=== PATIENT | female | born 1960 | race Caucasian/White ===

== ENCOUNTER 2019-10-10 11:12 | Inpatient (IN) | payer MEDICARE, OTHER ==
[2019-10-11] MEDS ORDERED: Cetirizine 10 MG Tab PO PRN (13:43)
[2019-10-11] MEDS ORDERED: Acetaminophen/HYDROcodone 325-5 MG Tab PO PRN (13:43)
[2019-10-11] MEDS ORDERED: Non-Formulary Medication 1 Each (Naproxen Sodium [Aleve] 220 MG) PO PRN (13:43)
[2019-10-11] MEDS ORDERED: Enoxaparin 40 MG/0.4 ML Syringe SUBCUT SCH (13:45)
[2019-10-11] MEDS ORDERED: Hypromellose 0.3% Ophth Soln 15 ML Bottle EYEBOTH PRN (14:09)
[2019-10-11] MEDS: Acetaminophen 500 MG Tab PO SCH ×2 (15:22→20:40)
[2019-10-11] MEDS: Dorzolamide 2% Ophth Soln 10 ML Bottle EYEBOTH SCH (18:21)
[2019-10-11] MEDS: Brimonidine 0.2% Ophth Soln 5 ML Bottle EYEBOTH SCH (18:22)
[2019-10-11] MEDS: DALFAMPRIDINE 10 MG PO SCH (20:40)
[2019-10-11] MEDS: Apixaban 5 MG Tab PO SCH (20:41)
[2019-10-11] MEDS: atorvaSTATin 20 MG Tab PO SCH (20:42)
[2019-10-11] MEDS: Latanoprost 0.005% Ophth Soln 2.5 ML Bottle EYEBOTH SCH (20:43)
[2019-10-12] MEDS ORDERED: Ondansetron 4 MG/2 ML SDV ONE (08:27)
[2019-10-12] MEDS: Sodium Chloride 0.9% 10 ML Syringe FLUSH PRN (08:30)
--- NOTE | 2019-10-12 08:44 | PCM.HP.2 ---
H&P History of Present Illness - General Date of Service: 10/12/19 Admit Problem/Dx: Admission Diagnosis/Problem Admission Diagnosis/Problem Weakness Source of Information: Patient History Limitations: Reports: No Limitations - History of Present Illness Initial Comments - Free Text/Narative: Kaykay is a 59-year-old female admitted yesterday to swing bed for rehabilitation. She had ORIF of the right tibia from a fall on 06 October at [facility]. She has MS,tobacco abuse uncontrolled, urinary incontinence stable, and a history of paroxysmal supra ventricular tachycardia. This morning she complains of palpitations and mild shortness of breath but denies any chest pain fever or chills. Right Leg Pain Score (Numeric/FACES): 0 - Related Data Allergies/Adverse Reactions: Allergies Allergy/AdvReac Type Severity Reaction Status Date / Time No Known Allergies Allergy Verified 10/11/19 12:08 Home Medications: Home Meds Acetaminophen [Tylenol Extra Strength] 1,000 mg PO TID 10/11/19 [History] Acetaminophen/HYDROcodone [Ipava 325-5 MG] 1 - 2 tab PO Q6H PRN 10/11/19 [ History] Apixaban [Eliquis] 2.5 mg PO BID 10/11/19 [History] Aspirin [[place] Aspirin] 81 mg PO DAILY 10/11/19 [History] Bimatoprost [LUMIGAN 0.01% Ophth Soln] 1 drop EYEBOTH BEDTIME 10/11/19 [History] Brinzolamide/Brimonidine Tart [Simbrinza 1%-0.2% Eye Drops] 1 drop EYEBOTH BID 10/11/19 [History] Calcium Carbonate/Vitamin D3 [Calcium 600 + Vit D 200] 1 tab PO DAILY 10/11/19 [ History] Cetirizine [ZyrTEC] 10 mg PO DAILY PRN 10/11/19 [History] Cholecalciferol (Vitamin D3) [Vitamin D3] 25 mcg PO DAILY 10/11/19 [History] Citalopram [Citalopram HBr] 10 mg PO DAILY 10/11/19 [History] Dalfampridine [Dalfampridine ER] 10 mg PO BID 10/11/19 [History] Hypromellose [Genteal Mild] 1 drop EYEBOTH ASDIRECTED PRN 10/11/19 [History] Lutein 20 mg PO DAILY 10/11/19 [History] Multivit,Calc,Mins/Iron/Folic [Therapeutic-M Tablet] 1 tab PO DAILY 10/11/19 [ History] Naproxen Sodium [Aleve] 220 mg PO BID PRN 10/11/19 [History] Teriflunomide [Aubagio] 14 mg PO DAILY 10/11/19 [History] atorvaSTATin [Lipitor] 20 mg PO BEDTIME 10/11/19 [History] Past Medical History HEENT History: Reports: Cataract, Impaired Vision Other HEENT History: Bilateral cataracts Cardiovascular History: Reports: Other (See Below) Other Cardiovascular History: SVT Respiratory History: Reports: SOB, Other (See Below) Other Respiratory History: Bronchitis Genitourinary History: Reports: Other (See Below) Other Genitourinary History: Stress incontinence LOGISTICS LEAD History: Reports: Musculoskeletal History: Reports: Other (See Below) Other Musculoskeletal History: Broken right ankle. MS Psychiatric History: Reports: Depression, Mood Swings Immunologic History: Reports: Other (See Below) Other Immunologic History: MS Oncologic (Cancer) History: Reports: Cervix - Infectious Disease History Infectious Disease History: Reports: Chicken Pox - Past Surgical History HEENT Surgical History: Reports: Cataract Surgery, Oral Surgery GI Surgical History: Reports: Appendectomy, Cholecystectomy Female Surgical History: Reports: Breast Biopsy, Section, Cervical Conization, Hysterectomy, Salpingo-Oophorectomy Musculoskeletal Surgical History: Reports: ORIF Other Musculoskeletal Surgeries/Procedures:: Right tib/fib repair 10/06 Social & Family History - Family History Family Medical History: Noncontributory - Tobacco Use Smoking Status *Q: Current Every Day Smoker Years of Tobacco use: 40 Packs/Tins Daily: 0.5 Used Tobacco, but Quit: No - Caffeine Use Caffeine Use: Reports: Soda Other Caffeine Use: Coke 2 cans/day - Recreational Drug Use Recreational Drug Use: No H&P Review of Systems - Review of Systems: Review Of Systems: Comprehensive ROS is negative, except as noted in HPI. Exam - Exam Exam: See Below - Vital Signs Vital Signs: Last Vital Signs Temp 98.1 F 10/11/19 12:07 Pulse 91 10/11/19 12:07 Resp 18 10/11/19 12:07 BP 105/75 10/11/19 12:07 Pulse Ox 94 L 10/11/19 12:07 Weight: 57.606 kg - Exam General: Alert HEENT: PERRLA, Hearing Intact, Mucosa Moist & [place], Nares Patent, Normal Nasal Septum, Posterior Pharynx Clear, Conjunctiva Clear, EOMI, EACs Clear, TMs Clear Neck: Supple, Trachea Midline, 2 Lungs: Clear to Auscultation, Normal Respiratory Effort Cardiovascular: Regular Rhythm, Tachycardia GI/Abdominal Exam: Normal Bowel Sounds, Soft, Non-Tender, No Organomegaly, No Distention, No Abnormal Bruit, No Mass, Pelvis Stable (Female) Exam: Normal External Exam, Normal Speculum Exam, Normal Bimanual Exam Rectal (Female) Exam: Deferred Back Exam: Normal Inspection, Full Range of Motion, NT Extremities: Normal Inspection, Normal Range of Motion, Non-Tender, No Pedal Edema, Normal Capillary Refill Skin: Warm, Dry, Intact Neurological: Cranial Nerves Intact, Reflexes Equal Bilateral Neuro Extensive - Mental Status: Alert, Oriented x3, Normal Mood/Affect, Normal Cognition Neuro Extensive - Motor, Sensory, Reflexes: CN II-XII Intact, Normal Gait, Normal Reflexes Psychiatric: Alert, Normal Affect, Normal Mood EKG INTERPRETATION EKG Date: 10/12/19 Rhythm: Other (SVT) Sepsis Event Note - Evaluation Sepsis Screening Result: No Definite Risk - Problem List (1) Fracture tibia/fibula SNOMED Code(s): 205424859 ICD Code: S82.209A - UNSP FRACTURE OF SHAFT OF UNSP TIBIA, INIT FOR CLOS FX; S82.409A - UNSP FRACTURE OF SHAFT OF UNSP FIBULA, INIT FOR CLOS FX Status: Acute Current Visit: Yes Qualifiers: Encounter type: subsequent encounter (2) Multiple sclerosis SNOMED Code(s): 60722243 ICD Code: G35 - MULTIPLE SCLEROSIS Status: Chronic Current Visit: Yes (3) PSVT (paroxysmal supraventricular tachycardia) SNOMED Code(s): 67772446 ICD Code: I47.1 - SUPRAVENTRICULAR TACHYCARDIA Status: Acute Current Visit: Yes (4) Tobacco abuse SNOMED Code(s): 620870644 ICD Code: Z72.0 - TOBACCO USE Status: Acute Current Visit: Yes (5) MDD (major depressive disorder) SNOMED Code(s): 384339619 ICD Code: F32.9 - MAJOR DEPRESSIVE DISORDER, SINGLE EPISODE, UNSPECIFIED Status: Acute Current Visit: Yes Qualifiers: Major depression recurrence: recurrent (6) Osteoporosis SNOMED Code(s): 44716516 ICD Code: M81.0 - AGE-RELATED OSTEOPOROSIS W/O CURRENT PATHOLOGICAL FRACTURE Status: Acute Current Visit: Yes Qualifiers: Osteoporosis type: age-related (7) Glaucoma SNOMED Code(s): 78839798 ICD Code: H40.9 - UNSPECIFIED GLAUCOMA Status: Acute Current Visit: Yes (8) HLD (hyperlipidemia) SNOMED Code(s): 80190492 ICD Code: E78.5 - HYPERLIPIDEMIA, UNSPECIFIED Status: Acute Current Visit : Yes Qualifiers: Hyperlipidemia type: unspecified Qualified Code(s): E78.5 - Hyperlipidemia , unspecified Problem List Initiated/Reviewed/Updated: Yes Orders Last 24hrs: Active Orders 24 hr Category Date Time Status Patient Status [ADT] Routine ADT 10/11/19 12:39 Active Activity as Tolerated [RC] .Routine Care 10/11/19 11:09 Active Communication Order [RC] DAILY Care 10/11/19 11:11 Active Vital Signs [RC] Q4H Care 10/12/19 08:37 Active OT Evaluation and Treatment [CONS] Routine Cons 10/11/19 11:08 Active PT Evaluation and Treatment [CONS] Routine Cons 10/11/19 11:08 Active Regular Diet [DIET] Diet 10/11/19 Dinner Active BASIC METABOLIC PANEL,BMP [CHEM] Stat Lab 10/12/19 08:36 Ordered CBC WITH AUTO DIFF [HEME] Stat Lab 10/12/19 08:36 Ordered TROPONIN I [CHEM] Stat Lab 10/12/19 08:36 Ordered Acetaminophen [Tylenol Extra Strength] Med 10/11/19 15:00 Active 1,000 mg PO TID Acetaminophen/HYDROcodone [Ipava 325-5 MG] Med 10/11/19 13:43 Active 1 tab PO Q6H PRN Apixaban [Eliquis] Med 10/11/19 21:00 Active 2.5 mg PO BID Aspirin Med 10/12/19 09:00 Active 81 mg PO DAILY Brimonidine [Alphagan 0.2% Ophth Soln] Med 10/11/19 18:00 Active 0 ml EYEBOTH BID@0900,1800 Calcium Carbonate [Oyster Shell Calcium] Med 10/12/19 09:00 Active 500 mg PO DAILY Cetirizine [ZyrTEC] Med 10/11/19 13:43 Active 10 mg PO DAILY PRN Cholecalciferol (Vitamin D3) [Vitamin D3] Med 10/12/19 09:00 Active 25 mcg PO DAILY Citalopram [Celexa] Med 10/12/19 09:00 Active 10 mg PO DAILY Dalfampridine [Dalfampridine ER] Med 10/11/19 21:00 Active 10 mg PO BID Diltiazem [Cardizem CD] Med 10/12/19 09:00 Ordered 120 mg PO DAILY Dorzolamide [Trusopt 2% Ophth Soln] Med 10/11/19 18:00 Active 0 ml EYEBOTH BID@0900,1800 Hypromellose [GenTeal Mild to Moderate Ophth Soln] Med 10/11/19 14:09 Active 0 ml EYEBOTH ASDIRECTED PRN Latanoprost [Xalatan 0.005% Ophth Soln] Med 10/11/19 21:00 Active 0 ml EYEBOTH BEDTIME Lutein Med 10/12/19 09:00 Active 20 mg PO DAILY Multivitamins w-Iron/Ca/FA/Min [Thera M Plus] Med 10/12/19 09:00 Active 1 tab PO DAILY Teriflunomide [Aubagio] Med 10/12/19 09:00 Active 14 mg PO DAILY atorvaSTATin [Lipitor] Med 10/11/19 21:00 Active 20 mg PO BEDTIME Code Status [Resuscitation Status] Routine Resus Stat 10/11/19 11:11 Ordered Medication Orders Acetaminophen (Tylenol Extra Strength) 1,000 mg PO TID [facility] Last Admin: 10/11/19 20:40 Dose: 1,000 mg Admin: 10/11/19 15:22 Dose: 1,000 mg Hydrocodone Bitart/Acetaminophen (Ipava 325-5 Mg) 1 tab PO Q6H PRN PRN Reason: Pain Last Admin: 10/12/19 05:12 Dose: 1 tab Apixaban (Eliquis) 2.5 mg PO BID [facility] Stop: 11/09/19 09:01 Last Admin: 10/11/19 20:41 Dose: 2.5 mg Artificial Tears (Genteal Mild To Moderate Ophth Soln) 0 ml EYEBOTH ASDIRECTED PRN PRN Reason: DRY EYES Aspirin (Aspirin) 81 mg PO DAILY [facility] Atorvastatin Calcium (Lipitor) 20 mg PO BEDTIME [facility] Last Admin: 10/11/19 20:42 Dose: 20 mg Brimonidine Tartrate (Alphagan 0.2% Ophth Soln) 0 ml EYEBOTH BID@0900,1800 [facility] Last Admin: 10/11/19 18:22 Dose: 1 drop Calcium Carbonate/Glycine (Oyster Shell Calcium) 500 mg PO DAILY [facility] Cetirizine HCl (Zyrtec) 10 mg PO DAILY PRN PRN Reason: Allergies Cholecalciferol (Vitamin D3) 25 mcg PO DAILY [facility] Citalopram Hydrobromide (Celexa) 10 mg PO DAILY [facility] Dalfampridine (Dalfampridine Er) 10 mg PO BID [facility] Last Admin: 10/11/19 20:40 Dose: 10 mg Diltiazem HCl (Cardizem Cd) 120 mg PO DAILY [facility] Dorzolamide HCl (Trusopt 2% Ophth Soln) 0 ml EYEBOTH BID@0900,1800 [facility] Last Admin: 10/11/19 18:21 Dose: 1 drop Latanoprost (Xalatan 0.005% Ophth Soln) 0 ml EYEBOTH BEDTIME [facility] Last Admin: 10/11/19 20:43 Dose: 1 drop Lutein (Lutein) 20 mg PO DAILY [facility] Multivitamins/Minerals (Thera M Plus) 1 tab PO DAILY [facility] (Teriflunomide [ Aubagio] 14 Mg) * Ptom 14 mg PO DAILY [facility] Assessment/Plan Comment:: This morning a rapid response team was called. Following ACLS guidelines IV was obtained patient was placed on the monitor. Showed HR of 200. Narrow complex. Adenosine 6 g IV was given with good results Blood pressure was stable ,with complains of chest pain. We'll continue with swing bed care, but will start Cardizem 180 mg daily. Obtain CBC troponin CMP. Vital signs every 4 hours. PT and OT on board.
[2019-10-12] MEDS ORDERED: Adenosine 6 MG/2 ML SDV IVPUSH ONE (08:49)
[2019-10-12] MEDS ORDERED: Aspirin 325 MG Tab.EC PO SCH (09:00)
[2019-10-12] MEDS ORDERED: Diltiazem 120 MG Cap.CD PO SCH (09:00)
[2019-10-12] MEDS: Citalopram 10 MG Tab PO SCH (09:23)
[2019-10-12] MEDS: Aspirin 81 MG Tab.Chew PO SCH (09:23)
[2019-10-12] MEDS: Apixaban 5 MG Tab PO SCH ×2 (09:23→20:34)
[2019-10-12] MEDS: DALFAMPRIDINE 10 MG PO SCH ×2 (09:23→20:34)
[2019-10-12] MEDS: Multivitamins with Iron/Calcium/Folic Acid/Minerals Tab PO SCH (09:24)
[2019-10-12] MEDS: Calcium Carbonate 500 MG Tablet PO SCH (09:24)
[2019-10-12] MEDS: Cholecalciferol (Vitamin D3) 25 MCG Tab PO SCH (09:24)
[2019-10-12] MEDS: TERIFLUNOMIDE 14 MG PO SCH (09:24)
[2019-10-12] MEDS: Brimonidine 0.2% Ophth Soln 5 ML Bottle EYEBOTH SCH ×2 (09:24→18:07)
[2019-10-12] MEDS: Acetaminophen 500 MG Tab PO SCH ×3 (09:24→20:34)
[2019-10-12] MEDS: Dorzolamide 2% Ophth Soln 10 ML Bottle EYEBOTH SCH ×2 (09:25→18:07)
[2019-10-12] MEDS ORDERED: Ondansetron 4 MG/2 ML SDV IVPUSH ONE (09:30)
[2019-10-12] MEDS: Latanoprost 0.005% Ophth Soln 2.5 ML Bottle EYEBOTH SCH (20:34)
[2019-10-12] MEDS: atorvaSTATin 20 MG Tab PO SCH (20:34)
[2019-10-13] MEDS: Acetaminophen 500 MG Tab PO SCH ×5 (05:00→20:29)
[2019-10-13] MEDS: Citalopram 10 MG Tab PO SCH (09:23)
[2019-10-13] MEDS: Aspirin 81 MG Tab.Chew PO SCH (09:23)
[2019-10-13] MEDS: Brimonidine 0.2% Ophth Soln 5 ML Bottle EYEBOTH SCH ×2 (09:23→18:22)
[2019-10-13] MEDS: Calcium Carbonate 500 MG Tablet PO SCH (09:24)
[2019-10-13] MEDS: TERIFLUNOMIDE 14 MG PO SCH (09:24)
[2019-10-13] MEDS: DALFAMPRIDINE 10 MG PO SCH ×2 (09:24→20:29)
[2019-10-13] MEDS: Apixaban 5 MG Tab PO SCH ×2 (09:24→20:29)
[2019-10-13] MEDS: Multivitamins with Iron/Calcium/Folic Acid/Minerals Tab PO SCH (09:25)
[2019-10-13] MEDS: Dorzolamide 2% Ophth Soln 10 ML Bottle EYEBOTH SCH ×2 (09:25→18:23)
[2019-10-13] MEDS: Cholecalciferol (Vitamin D3) 25 MCG Tab PO SCH (09:26)
[2019-10-13] MEDS: traMADol 50 MG Tab PO PRN (13:50)
[2019-10-13] MEDS: atorvaSTATin 20 MG Tab PO SCH (20:29)
[2019-10-13] MEDS: Latanoprost 0.005% Ophth Soln 2.5 ML Bottle EYEBOTH SCH (20:29)
--- NOTE | 2019-10-13 21:48 | PN ---
DATE SEEN: 10/13/2019 Kaykay Cervantes is a 59-year-old female, admitted on 10/11/19. She had a complicated fall and had an ORIF of the right tibia from a fall on 10/06/2017 at [facility]. She has a history of long-standing MS, uncontrolled tobacco use, and an issue of SVT. Had an episode of SVT yesterday, which required adenosine. The patient was symptomatic and not on telemetry. PT and OT actively involved. OBJECTIVE: VITAL SIGNS. 57.861 kg, 37.2 degrees Fahrenheit, pulse of 84, 91/60, 18 respirations, and 94 O2 sat. EXAM: Appears comfortable. NECK: Benign. Thyroid small. CHEST: Clear in all lung coats. HEART: No ectopy or murmur. ABDOMEN: Benign. Long brace present, right leg. Complicated right tibial fracture with surgical intervention. PLAN: PT/OT present on board. We will do Tylenol 500 mg scheduled q.4 hours, DC the other Tylenol 1000 mg t.i.d., DC the hydrocodone, add tramadol 50 mg q.4 hours p.r.n. for pain, we will give that a try for pain control. Other medications reviewed and appropriate. /[id number] [id number] SLIME/GUERITA
[2019-10-14] MEDS: Acetaminophen 500 MG Tab PO SCH ×7 (00:26→23:59)
[2019-10-14] MEDS: Multivitamins with Iron/Calcium/Folic Acid/Minerals Tab PO SCH (08:50)
[2019-10-14] MEDS: Cholecalciferol (Vitamin D3) 25 MCG Tab PO SCH (08:50)
[2019-10-14] MEDS: Brimonidine 0.2% Ophth Soln 5 ML Bottle EYEBOTH SCH ×2 (08:50→18:34)
[2019-10-14] MEDS: Dorzolamide 2% Ophth Soln 10 ML Bottle EYEBOTH SCH ×2 (08:50→18:34)
[2019-10-14] MEDS: Aspirin 81 MG Tab.Chew PO SCH (08:51)
[2019-10-14] MEDS: Apixaban 5 MG Tab PO SCH ×2 (08:51→20:41)
[2019-10-14] MEDS: Calcium Carbonate 500 MG Tablet PO SCH (08:52)
[2019-10-14] MEDS: Citalopram 10 MG Tab PO SCH (08:52)
[2019-10-14] MEDS: TERIFLUNOMIDE 14 MG PO SCH (08:52)
[2019-10-14] MEDS: DALFAMPRIDINE 10 MG PO SCH ×2 (08:53→20:41)
--- NOTE | 2019-10-14 12:05 | PN ---
DATE SEEN: 10/14/2019 SUBJECTIVE: Kaykay Briscoe is a 59-year-old female admitted in transfer on . She had sustained a fall on . History of MS, tobacco abuse, and uncomfortable living situation. Doing well. Pain is controlled by report. Brace impairs her ability to turn and lay on her tummy. LABORATORY STUDIES: From 10/11; hemoglobin 11.2, normal indices, electrolytes satisfactory. Potassium is 3.3. Pain is controlled. PHYSICAL EXAMINATION: VITAL SIGNS: 36.6, 94, 117/78, 16 is the respirations, 91%. GENERAL: Appears comfortable, not short of breath. Speech was fluent. NECK: Benign. Thyroid small. CHEST: Clear, all lung coats. HEART: No ectopy or murmur. ABDOMEN: Benign. Brace in place. Peripheral pulses intact. Complicated right tibial fracture. PLAN: Medications, care, and treatment on board, pain control, all looks well. /[id number] /JOSE CARLOSL
[2019-10-14] MEDS: traMADol 50 MG Tab PO PRN (14:18)
[2019-10-14] MEDS: Sodium Chloride 0.9% 10 ML Syringe FLUSH PRN ×2 (18:54→19:40)
[2019-10-14] MEDS ORDERED: Adenosine 6 MG/2 ML SDV IVPUSH ONE (18:55)
[2019-10-14] MEDS: atorvaSTATin 20 MG Tab PO SCH (20:42)
[2019-10-14] MEDS: Latanoprost 0.005% Ophth Soln 2.5 ML Bottle EYEBOTH SCH (20:42)
[2019-10-15] MEDS: Acetaminophen 500 MG Tab PO SCH ×6 (04:14→23:08)
[2019-10-15] MEDS: Calcium Carbonate 500 MG Tablet PO SCH (09:00)
[2019-10-15] MEDS: Cholecalciferol (Vitamin D3) 25 MCG Tab PO SCH (09:00)
[2019-10-15] MEDS: Aspirin 81 MG Tab.Chew PO SCH (09:00)
[2019-10-15] MEDS: Multivitamins with Iron/Calcium/Folic Acid/Minerals Tab PO SCH (09:00)
[2019-10-15] MEDS: Dorzolamide 2% Ophth Soln 10 ML Bottle EYEBOTH SCH ×2 (09:00→18:14)
[2019-10-15] MEDS: Apixaban 5 MG Tab PO SCH ×2 (09:00→20:10)
[2019-10-15] MEDS: Brimonidine 0.2% Ophth Soln 5 ML Bottle EYEBOTH SCH ×2 (09:00→18:14)
[2019-10-15] MEDS: Citalopram 10 MG Tab PO SCH (09:00)
[2019-10-15] MEDS: DALFAMPRIDINE 10 MG PO SCH ×2 (09:01→20:10)
[2019-10-15] MEDS: TERIFLUNOMIDE 14 MG PO SCH (09:01)
--- NOTE | 2019-10-15 13:34 | PN ---
DATE SEEN: 10/15/2019 SUBJECTIVE: Kaykay Cervantes is a 59-year-old, female, in for rehab purposes, admitted on 10/10, had ORIF of right tibial fracture secondary to fall. Comorbid issues include MS, long-term smoker. Using nicotine lozenges. Doing well. Plan is to [facility] when better. LABORATORY STUDIES: reviewed, potassium went from 3.3 to 3.4 with oral potassium appropriate upwards. Doing well with pain, Tylenol routinely, tramadol for breakthrough pain. OBJECTIVE: VITAL SIGNS: 36.7, 82, 128/81, respirations 18, O2 saturation 90%. GENERAL: Appears comfortable. NECK: Benign. No JVD. CHEST: Clear in all lung coats. HEART: No ectopy or murmur. ABDOMEN: Benign. Brace in place, right lower leg. ASSESSMENT: Complicated surgical right tibial fracture. PLAN: Treatment on board, medications on board noted. Another episode of SVT yesterday responded to one dose of adenosine, we will hold Cardizem due to low blood pressure related side effects. /[id number] [id number] SLIME/GUERITA
[2019-10-15] MEDS: Latanoprost 0.005% Ophth Soln 2.5 ML Bottle EYEBOTH SCH (20:10)
[2019-10-15] MEDS: atorvaSTATin 20 MG Tab PO SCH (20:10)
[2019-10-16] MEDS: Acetaminophen 500 MG Tab PO SCH ×6 (03:44→23:10)
[2019-10-16] MEDS: Dorzolamide 2% Ophth Soln 10 ML Bottle EYEBOTH SCH ×2 (08:58→18:27)
[2019-10-16] MEDS: Brimonidine 0.2% Ophth Soln 5 ML Bottle EYEBOTH SCH ×2 (08:58→18:27)
[2019-10-16] MEDS: Multivitamins with Iron/Calcium/Folic Acid/Minerals Tab PO SCH (08:58)
[2019-10-16] MEDS: Calcium Carbonate 500 MG Tablet PO SCH (08:59)
[2019-10-16] MEDS: Apixaban 5 MG Tab PO SCH ×2 (08:59→21:15)
[2019-10-16] MEDS: Citalopram 10 MG Tab PO SCH (08:59)
[2019-10-16] MEDS: Aspirin 81 MG Tab.Chew PO SCH (08:59)
[2019-10-16] MEDS: DALFAMPRIDINE 10 MG PO SCH ×2 (08:59→21:15)
[2019-10-16] MEDS: Cholecalciferol (Vitamin D3) 25 MCG Tab PO SCH (08:59)
[2019-10-16] MEDS: TERIFLUNOMIDE 14 MG PO SCH (09:00)
[2019-10-16] MEDS: traMADol 50 MG Tab PO PRN (10:45)
--- NOTE | 2019-10-16 12:10 | PN ---
DATE SEEN: 10/16/2019 SUBJECTIVE: Kaykay Cervantes is a 59-year-old female in swing bed. Had complicated right tibial fracture, 10/06. MS, smoker. No recurrence of her SVT. LABORATORY STUDIES: None since admission. OBJECTIVE: VITAL SIGNS: 36.1, 114/78, 18, and 92%. GENERAL: Appears comfortable. Hacky cough. NECK: Benign. CHEST: Some coarse rhonchi. HEART: No ectopy or murmur. ABDOMEN: Benign. ASSESSMENT: 1. Right tibial fracture. 2. Recurrent supraventricular tachycardia. PLAN: Spoke about cardiology issues, discussion about ablation in the past. We will treat medically. Whenever cardiac enzyme was on board, marked reduction in blood pressure, symptomatic hypotension. Continue present medical therapy. /[id number] [id number] /GUERITA
[2019-10-16] MEDS: atorvaSTATin 20 MG Tab PO SCH (21:15)
[2019-10-16] MEDS: Sodium Chloride 0.9% 10 ML Syringe FLUSH SCH (21:16)
[2019-10-16] MEDS: Latanoprost 0.005% Ophth Soln 2.5 ML Bottle EYEBOTH SCH (21:16)
[2019-10-17] MEDS: Acetaminophen 500 MG Tab PO SCH ×6 (03:40→23:05)
[2019-10-17] MEDS: traMADol 50 MG Tab PO PRN ×2 (06:35→13:32)
[2019-10-17] MEDS: Brimonidine 0.2% Ophth Soln 5 ML Bottle EYEBOTH SCH ×2 (08:01→17:58)
[2019-10-17] MEDS: Dorzolamide 2% Ophth Soln 10 ML Bottle EYEBOTH SCH ×2 (08:04→17:58)
[2019-10-17] MEDS: Apixaban 5 MG Tab PO SCH ×2 (08:06→21:45)
[2019-10-17] MEDS: Aspirin 81 MG Tab.Chew PO SCH (08:06)
[2019-10-17] MEDS: Citalopram 10 MG Tab PO SCH (08:07)
[2019-10-17] MEDS: DALFAMPRIDINE 10 MG PO SCH ×2 (08:07→21:45)
[2019-10-17] MEDS: Multivitamins with Iron/Calcium/Folic Acid/Minerals Tab PO SCH (08:08)
[2019-10-17] MEDS: Calcium Carbonate 500 MG Tablet PO SCH (08:09)
[2019-10-17] MEDS: TERIFLUNOMIDE 14 MG PO SCH (08:10)
[2019-10-17] MEDS: Cholecalciferol (Vitamin D3) 25 MCG Tab PO SCH (08:11)
--- NOTE | 2019-10-17 13:30 | PN ---
DATE SEEN: 10/17/2019 SUBJECTIVE: Kaykay Cervantes is a 59-year-old female, in swing bed. She had a right tibial fracture. Fracture occurred on 10/07/2019. She has been not the best of cooperative individuals for therapy and intervention. Pain appears to be controlled. OBJECTIVE: GENERAL: Appears comfortable. Speech was fluent. NECK: Benign. Thyroid small. CHEST: Clear in all lung coats. HEART: No ectopy, no murmur. ABDOMEN: Benign. ASSESSMENT: 1. Tibial fracture. 2. Recurrent supraventricular tachycardia. PLAN: SVT stable, not anxious to proceed with calcium channel davide, history of low blood pressure, aggressive PT planned. Living situation, lives with a garcia, not very helpful, busy with farming. /[id number] SLIME/GUERITA
[2019-10-17] MEDS: atorvaSTATin 20 MG Tab PO SCH (21:46)
[2019-10-17] MEDS: Sodium Chloride 0.9% 10 ML Syringe FLUSH SCH (21:47)
[2019-10-17] MEDS: Latanoprost 0.005% Ophth Soln 2.5 ML Bottle EYEBOTH SCH (21:48)
[2019-10-18] MEDS: Acetaminophen 500 MG Tab PO SCH ×6 (03:32→22:45)
[2019-10-18] MEDS: Aspirin 81 MG Tab.Chew PO SCH (09:03)
[2019-10-18] MEDS: DALFAMPRIDINE 10 MG PO SCH ×2 (09:04→21:26)
[2019-10-18] MEDS: TERIFLUNOMIDE 14 MG PO SCH (09:04)
[2019-10-18] MEDS: Cholecalciferol (Vitamin D3) 25 MCG Tab PO SCH (09:04)
[2019-10-18] MEDS: Citalopram 10 MG Tab PO SCH (09:04)
[2019-10-18] MEDS: Multivitamins with Iron/Calcium/Folic Acid/Minerals Tab PO SCH (09:04)
[2019-10-18] MEDS: Apixaban 5 MG Tab PO SCH ×2 (09:04→21:27)
[2019-10-18] MEDS: Calcium Carbonate 500 MG Tablet PO SCH (09:04)
[2019-10-18] MEDS: Brimonidine 0.2% Ophth Soln 5 ML Bottle EYEBOTH SCH ×2 (09:06→17:45)
[2019-10-18] MEDS: traMADol 50 MG Tab PO PRN ×2 (09:06→18:25)
[2019-10-18] MEDS: Dorzolamide 2% Ophth Soln 10 ML Bottle EYEBOTH SCH ×2 (09:06→17:45)
--- NOTE | 2019-10-18 14:15 | PN ---
DATE SEEN: 10/18/2019 Kaykay is a young lady, 59 years of age, seen today for review. Had a complicated fall and ORIF of right tibia on 10/07/19 at [facility]. MS and smoker. Potassium is normal. Heart has remained stable. No recurrence of SVT. PHYSICAL EXAMINATION: VITAL SIGNS: noted. In good spirits. Therapy in place. A little bit reluctant on her part. No telemetry indicated. /[id number] SLIME/GUERITA
[2019-10-18] MEDS: atorvaSTATin 20 MG Tab PO SCH (21:27)
[2019-10-18] MEDS: Sodium Chloride 0.9% 10 ML Syringe FLUSH SCH (21:27)
[2019-10-18] MEDS: Latanoprost 0.005% Ophth Soln 2.5 ML Bottle EYEBOTH SCH (21:29)
[2019-10-19] MEDS: Acetaminophen 500 MG Tab PO SCH ×6 (03:10→22:44)
[2019-10-19] MEDS: Apixaban 5 MG Tab PO SCH ×2 (08:24→20:44)
[2019-10-19] MEDS: Citalopram 10 MG Tab PO SCH (08:24)
[2019-10-19] MEDS: DALFAMPRIDINE 10 MG PO SCH ×2 (08:24→20:43)
[2019-10-19] MEDS: Aspirin 81 MG Tab.Chew PO SCH (08:24)
[2019-10-19] MEDS: Cholecalciferol (Vitamin D3) 25 MCG Tab PO SCH (08:25)
[2019-10-19] MEDS: TERIFLUNOMIDE 14 MG PO SCH (08:25)
[2019-10-19] MEDS: Calcium Carbonate 500 MG Tablet PO SCH (08:25)
[2019-10-19] MEDS: Brimonidine 0.2% Ophth Soln 5 ML Bottle EYEBOTH SCH ×2 (08:25→19:33)
[2019-10-19] MEDS: Multivitamins with Iron/Calcium/Folic Acid/Minerals Tab PO SCH (08:25)
[2019-10-19] MEDS: Dorzolamide 2% Ophth Soln 10 ML Bottle EYEBOTH SCH ×2 (08:25→19:34)
[2019-10-19] MEDS: traMADol 50 MG Tab PO PRN (09:29)
--- NOTE | 2019-10-19 13:32 | PN ---
DATE SEEN: 10/19/2019 SUBJECTIVE: Ms. Kaykay Cervantes is a 59-year-old female, in swing bed. Admitted on October 11, 2019. ORIF right tibia, secondary to a fall. Care of [facility]. MS and smoking history. LABORATORY STUDIES: Potassium stable; 3.3, 3.4, 3.7. MEDICATIONS: Reviewed and appropriate. OBJECTIVE: VITAL SIGNS: 36.5, 103/63, pulse of 88, respirations 16, and O2 saturation 91%. GENERAL: Appears comfortable. Speech was fluent. NECK: Benign. CHEST: Decreased breath sounds. CV: Heart sounds distant without ectopy or murmur. ABDOMEN: Benign. MUSCULOSKELETAL: Brace in place. ASSESSMENT: 1. Tibial fracture. 2. Multiple sclerosis. 3. Long-term smoker. PLAN: Intervention and care. Close observation. Rehab until discharge back to her final living place. /[id number] SLIME/GUERITA
[2019-10-19] MEDS: atorvaSTATin 20 MG Tab PO SCH (20:44)
[2019-10-19] MEDS: Sodium Chloride 0.9% 10 ML Syringe FLUSH SCH (20:45)
[2019-10-19] MEDS: Latanoprost 0.005% Ophth Soln 2.5 ML Bottle EYEBOTH SCH (20:46)
[2019-10-20] MEDS: Acetaminophen 500 MG Tab PO SCH ×5 (03:34→19:55)
[2019-10-20] MEDS: Aspirin 81 MG Tab.Chew PO SCH (08:59)
[2019-10-20] MEDS: Brimonidine 0.2% Ophth Soln 5 ML Bottle EYEBOTH SCH ×2 (08:59→18:25)
[2019-10-20] MEDS: DALFAMPRIDINE 10 MG PO SCH ×2 (08:59→21:41)
[2019-10-20] MEDS: Cholecalciferol (Vitamin D3) 25 MCG Tab PO SCH (08:59)
[2019-10-20] MEDS: Citalopram 20 MG Tab PO SCH (08:59)
[2019-10-20] MEDS: Apixaban 5 MG Tab PO SCH ×2 (09:00→21:40)
[2019-10-20] MEDS: Multivitamins with Iron/Calcium/Folic Acid/Minerals Tab PO SCH (09:00)
[2019-10-20] MEDS: Dorzolamide 2% Ophth Soln 10 ML Bottle EYEBOTH SCH ×2 (09:00→18:25)
[2019-10-20] MEDS: TERIFLUNOMIDE 14 MG PO SCH (09:00)
[2019-10-20] MEDS: Calcium Carbonate 500 MG Tablet PO SCH (09:00)
[2019-10-20] MEDS: traMADol 50 MG Tab PO PRN ×2 (09:09→13:09)
[2019-10-20] MEDS: Latanoprost 0.005% Ophth Soln 2.5 ML Bottle EYEBOTH SCH (21:41)
[2019-10-20] MEDS: atorvaSTATin 20 MG Tab PO SCH (21:41)
[2019-10-21] MEDS: Acetaminophen 500 MG Tab PO SCH ×7 (00:05→23:32)
[2019-10-21] MEDS: Brimonidine 0.2% Ophth Soln 5 ML Bottle EYEBOTH SCH ×2 (08:29→18:43)
[2019-10-21] MEDS: Multivitamins with Iron/Calcium/Folic Acid/Minerals Tab PO SCH (08:31)
[2019-10-21] MEDS: Citalopram 20 MG Tab PO SCH (08:31)
[2019-10-21] MEDS: Calcium Carbonate 500 MG Tablet PO SCH (08:31)
[2019-10-21] MEDS: Apixaban 5 MG Tab PO SCH ×2 (08:31→20:14)
[2019-10-21] MEDS: DALFAMPRIDINE 10 MG PO SCH ×2 (08:31→20:14)
[2019-10-21] MEDS: Aspirin 81 MG Tab.Chew PO SCH (08:31)
[2019-10-21] MEDS: Cholecalciferol (Vitamin D3) 25 MCG Tab PO SCH (08:31)
[2019-10-21] MEDS: TERIFLUNOMIDE 14 MG PO SCH (08:33)
[2019-10-21] MEDS: Dorzolamide 2% Ophth Soln 10 ML Bottle EYEBOTH SCH ×2 (08:34→18:43)
[2019-10-21] MEDS: traMADol 50 MG Tab PO PRN (10:33)
[2019-10-21] MEDS: atorvaSTATin 20 MG Tab PO SCH (20:15)
[2019-10-21] MEDS: Latanoprost 0.005% Ophth Soln 2.5 ML Bottle EYEBOTH SCH (20:15)
[2019-10-22] MEDS: Acetaminophen 500 MG Tab PO SCH ×6 (04:02→23:29)
[2019-10-22] MEDS: Brimonidine 0.2% Ophth Soln 5 ML Bottle EYEBOTH SCH ×2 (08:08→17:32)
[2019-10-22] MEDS: Calcium Carbonate 500 MG Tablet PO SCH (08:09)
[2019-10-22] MEDS: Multivitamins with Iron/Calcium/Folic Acid/Minerals Tab PO SCH (08:09)
[2019-10-22] MEDS: Apixaban 5 MG Tab PO SCH ×2 (08:09→21:20)
[2019-10-22] MEDS: Cholecalciferol (Vitamin D3) 25 MCG Tab PO SCH (08:09)
[2019-10-22] MEDS: DALFAMPRIDINE 10 MG PO SCH ×2 (08:09→21:21)
[2019-10-22] MEDS: Aspirin 81 MG Tab.Chew PO SCH (08:10)
[2019-10-22] MEDS: Dorzolamide 2% Ophth Soln 10 ML Bottle EYEBOTH SCH ×2 (08:10→17:30)
[2019-10-22] MEDS: Citalopram 20 MG Tab PO SCH (08:10)
[2019-10-22] MEDS: TERIFLUNOMIDE 14 MG PO SCH (08:11)
--- NOTE | 2019-10-22 08:33 | PCM.PN ---
- General Info Date of Service: 10/22/19 Admission Dx/Problem (Free Text): Patient without concerns. Pain is controlled and she is doing well. - Patient Data Vitals - Most Recent: Last Vital Signs Temp 97.9 F 10/21/19 08:00 Pulse 83 10/21/19 08:00 Resp 18 10/21/19 08:00 BP 99/67 10/21/19 08:00 Pulse Ox 93 L 10/21/19 08:00 Weight - Most Recent: 125 lb 9.6 oz Med Orders - Current: Current Medications Acetaminophen (Tylenol Extra Strength) 500 mg PO Q4H [facility] Last Admin: 10/22/19 07:49 Dose: 500 mg Apixaban (Eliquis) 2.5 mg PO BID [facility] Stop: 11/09/19 09:01 Last Admin: 10/22/19 08:09 Dose: 2.5 mg Artificial Tears (Genteal Mild To Moderate Ophth Soln) 0 ml EYEBOTH ASDIRECTED PRN PRN Reason: DRY EYES Aspirin (Aspirin) 81 mg PO DAILY [facility] Last Admin: 10/22/19 08:10 Dose: 81 mg Atorvastatin Calcium (Lipitor) 20 mg PO BEDTIME [facility] Last Admin: 10/21/19 20:15 Dose: 20 mg Brimonidine Tartrate (Alphagan 0.2% Ophth Soln) 0 ml EYEBOTH BID@0900,1800 [facility] Last Admin: 10/22/19 08:08 Dose: 1 drop Calcium Carbonate/Glycine (Oyster Shell Calcium) 500 mg PO DAILY [facility] Last Admin: 10/22/19 08:09 Dose: 500 mg Cetirizine HCl (Zyrtec) 10 mg PO DAILY PRN PRN Reason: Allergies Cholecalciferol (Vitamin D3) 25 mcg PO DAILY [facility] Last Admin: 10/22/19 08:09 Dose: 25 mcg Citalopram Hydrobromide (Celexa) 20 mg PO DAILY [facility] Last Admin: 10/22/19 08:10 Dose: 20 mg Dalfampridine (Dalfampridine Er) 10 mg PO BID [facility] Last Admin: 10/22/19 08:09 Dose: 10 mg Dorzolamide HCl (Trusopt 2% Ophth Soln) 0 ml EYEBOTH BID@0900,1800 [facility] Last Admin: 10/22/19 08:10 Dose: 1 drop Latanoprost (Xalatan 0.005% Ophth Soln) 0 ml EYEBOTH BEDTIME [facility] Last Admin: 10/21/19 20:15 Dose: 1 drop Lutein (Lutein) 20 mg PO DAILY [facility] Last Admin: 10/22/19 08:09 Dose: 20 mg Multivitamins/Minerals (Thera M Plus) 1 tab PO DAILY [facility] Last Admin: 10/22/19 08:09 Dose: 1 tab (Teriflunomide [ Aubagio] 14 Mg) * Ptom 14 mg PO DAILY [facility] Last Admin: 10/22/19 08:11 Dose: 14 mg Sodium Chloride (Saline Flush) 10 ml FLUSH ASDIRECTED PRN PRN Reason: Keep Vein Open Last Admin: 10/14/19 19:40 Dose: 10 ml Tramadol HCl (Ultram) 50 mg PO Q4H PRN PRN Reason: LEG PAIN Last Admin: 10/21/19 10:33 Dose: 50 mg Discontinued Medications Acetaminophen (Tylenol Extra Strength) 1,000 mg PO TID [facility] Last Admin: 10/13/19 09:26 Dose: Not Given Hydrocodone Bitart/Acetaminophen ([place] 325-5 Mg) 1 tab PO Q6H PRN PRN Reason: Pain Last Admin: 10/12/19 05:12 Dose: 1 tab Adenosine (Adenocard) 6 mg IVPUSH NOW ONE Stop: 10/12/19 08:50 Last Admin: 10/12/19 08:25 Dose: 6 mg Adenosine (Adenocard) 6 mg IVPUSH NOW ONE Stop: 10/14/19 18:56 Last Admin: 10/14/19 19:40 Dose: 6 mg Citalopram Hydrobromide (Celexa) 10 mg PO DAILY [facility] Last Admin: 10/19/19 08:24 Dose: 10 mg Diltiazem HCl (Cardizem Cd) 120 mg PO DAILY [facility] Last Admin: 10/12/19 09:23 Dose: 120 mg Non-Formulary Medication (Naproxen Sodium [Aleve]) 220 mg PO BID PRN PRN Reason: Pain Ondansetron HCl (Zofran) Confirm Administered Dose 4 mg .ROUTE .STK-MED ONE Stop: 10/12/19 08:28 Last Admin: 10/12/19 09:21 Dose: Not Given Ondansetron HCl (Zofran) 4 mg IVPUSH ONETIME ONE Stop: 10/12/19 09:31 Last Admin: 10/12/19 08:28 Dose: 4 mg Sodium Chloride (Saline Flush) 10 ml FLUSH BEDTIME [facility] Last Admin: 10/19/19 20:45 Dose: Not Given - Exam General: Alert, Oriented, Cooperative Extremities: Other (Right leg with brace and wrapped up.) Sepsis Event Note - Evaluation Sepsis Screening Result: No Definite Risk - Problem List & Annotations (1) Fracture tibia/fibula SNOMED Code(s): 673953976 Code(s): S82.209A - UNSP FRACTURE OF SHAFT OF UNSP TIBIA, INIT FOR CLOS FX; S82.409A - UNSP FRACTURE OF SHAFT OF UNSP FIBULA, INIT FOR CLOS FX Status: Acute Current Visit: Yes Qualifiers: Encounter type: subsequent encounter (2) Glaucoma SNOMED Code(s): 73378042 Code(s): H40.9 - UNSPECIFIED GLAUCOMA Status: Acute Current Visit: Yes (3) HLD (hyperlipidemia) SNOMED Code(s): 87160600 Code(s): E78.5 - HYPERLIPIDEMIA, UNSPECIFIED Status: Acute Current Visit : Yes Qualifiers: Hyperlipidemia type: unspecified Qualified Code(s): E78.5 - Hyperlipidemia , unspecified (4) Osteoporosis SNOMED Code(s): 30565639 Code(s): M81.0 - AGE-RELATED OSTEOPOROSIS W/O CURRENT PATHOLOGICAL FRACTURE Status: Acute Current Visit: Yes Qualifiers: Osteoporosis type: age-related (5) Tobacco abuse SNOMED Code(s): 251594131 Code(s): Z72.0 - TOBACCO USE Status: Acute Current Visit: Yes (6) Multiple sclerosis SNOMED Code(s): 54589213 Code(s): G35 - MULTIPLE SCLEROSIS Status: Chronic Current Visit: Yes - Problem List Review Problem List Initiated/Reviewed/Updated: Yes - Plan Plan:: Continue current care.
[2019-10-22] MEDS: atorvaSTATin 20 MG Tab PO SCH (21:20)
[2019-10-22] MEDS: Latanoprost 0.005% Ophth Soln 2.5 ML Bottle EYEBOTH SCH (21:21)
[2019-10-23] MEDS: Acetaminophen 500 MG Tab PO SCH ×6 (03:23→23:42)
[2019-10-23] MEDS: Brimonidine 0.2% Ophth Soln 5 ML Bottle EYEBOTH SCH ×2 (08:52→17:41)
[2019-10-23] MEDS: Aspirin 81 MG Tab.Chew PO SCH (08:53)
[2019-10-23] MEDS: Citalopram 20 MG Tab PO SCH (08:53)
[2019-10-23] MEDS: Apixaban 5 MG Tab PO SCH ×2 (08:53→20:34)
[2019-10-23] MEDS: DALFAMPRIDINE 10 MG PO SCH ×2 (08:54→20:34)
[2019-10-23] MEDS: Cholecalciferol (Vitamin D3) 25 MCG Tab PO SCH (08:54)
[2019-10-23] MEDS: Multivitamins with Iron/Calcium/Folic Acid/Minerals Tab PO SCH (08:54)
[2019-10-23] MEDS: TERIFLUNOMIDE 14 MG PO SCH (08:55)
[2019-10-23] MEDS: Dorzolamide 2% Ophth Soln 10 ML Bottle EYEBOTH SCH ×2 (08:56→17:42)
[2019-10-23] MEDS: Calcium Carbonate 500 MG Tablet PO SCH (09:05)
[2019-10-23] MEDS: atorvaSTATin 20 MG Tab PO SCH (20:34)
[2019-10-23] MEDS: Latanoprost 0.005% Ophth Soln 2.5 ML Bottle EYEBOTH SCH (20:35)
[2019-10-24] MEDS: Acetaminophen 500 MG Tab PO SCH ×6 (03:28→22:56)
[2019-10-24] MEDS: Apixaban 5 MG Tab PO SCH ×2 (08:16→20:36)
[2019-10-24] MEDS: Citalopram 20 MG Tab PO SCH (08:16)
[2019-10-24] MEDS: Dorzolamide 2% Ophth Soln 10 ML Bottle EYEBOTH SCH ×2 (08:16→17:37)
[2019-10-24] MEDS: Aspirin 81 MG Tab.Chew PO SCH (08:16)
[2019-10-24] MEDS: Calcium Carbonate 500 MG Tablet PO SCH (08:17)
[2019-10-24] MEDS: DALFAMPRIDINE 10 MG PO SCH ×2 (08:17→20:35)
[2019-10-24] MEDS: Cholecalciferol (Vitamin D3) 25 MCG Tab PO SCH (08:17)
[2019-10-24] MEDS: Brimonidine 0.2% Ophth Soln 5 ML Bottle EYEBOTH SCH ×2 (08:18→17:37)
[2019-10-24] MEDS: Multivitamins with Iron/Calcium/Folic Acid/Minerals Tab PO SCH (08:18)
[2019-10-24] MEDS: TERIFLUNOMIDE 14 MG PO SCH (08:18)
[2019-10-24] MEDS: traMADol 50 MG Tab PO PRN (08:19)
[2019-10-24] MEDS: Latanoprost 0.005% Ophth Soln 2.5 ML Bottle EYEBOTH SCH (20:33)
[2019-10-24] MEDS: atorvaSTATin 20 MG Tab PO SCH (20:37)
[2019-10-25] MEDS: Acetaminophen 500 MG Tab PO SCH ×5 (04:12→21:29)
[2019-10-25] MEDS: Citalopram 20 MG Tab PO SCH (08:45)
[2019-10-25] MEDS: DALFAMPRIDINE 10 MG PO SCH ×2 (08:46→21:27)
[2019-10-25] MEDS: Cholecalciferol (Vitamin D3) 25 MCG Tab PO SCH (08:46)
[2019-10-25] MEDS: Aspirin 81 MG Tab.Chew PO SCH (08:46)
[2019-10-25] MEDS: Multivitamins with Iron/Calcium/Folic Acid/Minerals Tab PO SCH (08:46)
[2019-10-25] MEDS: Calcium Carbonate 500 MG Tablet PO SCH (08:46)
[2019-10-25] MEDS: Apixaban 5 MG Tab PO SCH ×2 (08:46→21:27)
[2019-10-25] MEDS: Dorzolamide 2% Ophth Soln 10 ML Bottle EYEBOTH SCH ×2 (08:47→18:03)
[2019-10-25] MEDS: Brimonidine 0.2% Ophth Soln 5 ML Bottle EYEBOTH SCH ×2 (08:49→18:03)
[2019-10-25] MEDS: TERIFLUNOMIDE 14 MG PO SCH (08:52)
[2019-10-25] MEDS: traMADol 50 MG Tab PO PRN (09:15)
[2019-10-25] MEDS: Latanoprost 0.005% Ophth Soln 2.5 ML Bottle EYEBOTH SCH (21:28)
[2019-10-25] MEDS: atorvaSTATin 20 MG Tab PO SCH (21:28)
[2019-10-26] MEDS: traMADol 50 MG Tab PO PRN ×2 (03:06→08:33)
[2019-10-26] MEDS: Dorzolamide 2% Ophth Soln 10 ML Bottle EYEBOTH SCH ×2 (08:36→17:04)
[2019-10-26] MEDS: Brimonidine 0.2% Ophth Soln 5 ML Bottle EYEBOTH SCH ×2 (08:37→17:03)
[2019-10-26] MEDS: Acetaminophen 500 MG Tab PO SCH ×4 (08:38→20:46)
[2019-10-26] MEDS: Calcium Carbonate 500 MG Tablet PO SCH (08:39)
[2019-10-26] MEDS: Multivitamins with Iron/Calcium/Folic Acid/Minerals Tab PO SCH (08:40)
[2019-10-26] MEDS: Citalopram 20 MG Tab PO SCH (08:40)
[2019-10-26] MEDS: Apixaban 5 MG Tab PO SCH ×2 (08:40→20:46)
[2019-10-26] MEDS: DALFAMPRIDINE 10 MG PO SCH ×2 (08:40→20:45)
[2019-10-26] MEDS: Cholecalciferol (Vitamin D3) 25 MCG Tab PO SCH (08:40)
[2019-10-26] MEDS: Aspirin 81 MG Tab.Chew PO SCH (08:41)
[2019-10-26] MEDS: TERIFLUNOMIDE 14 MG PO SCH (08:43)
[2019-10-26] MEDS: atorvaSTATin 20 MG Tab PO SCH (20:46)
[2019-10-26] MEDS: Latanoprost 0.005% Ophth Soln 2.5 ML Bottle EYEBOTH SCH (20:47)
[2019-10-27] MEDS: Acetaminophen 500 MG Tab PO PRN (01:39)
[2019-10-27] MEDS: traMADol 50 MG Tab PO PRN ×2 (06:36→11:24)
[2019-10-27] MEDS: Brimonidine 0.2% Ophth Soln 5 ML Bottle EYEBOTH SCH ×2 (08:47→17:17)
[2019-10-27] MEDS: Citalopram 20 MG Tab PO SCH (08:48)
[2019-10-27] MEDS: Aspirin 81 MG Tab.Chew PO SCH (08:48)
[2019-10-27] MEDS: DALFAMPRIDINE 10 MG PO SCH ×2 (08:48→20:17)
[2019-10-27] MEDS: Apixaban 5 MG Tab PO SCH ×2 (08:49→20:17)
[2019-10-27] MEDS: Multivitamins with Iron/Calcium/Folic Acid/Minerals Tab PO SCH (08:49)
[2019-10-27] MEDS: Calcium Carbonate 500 MG Tablet PO SCH (08:49)
[2019-10-27] MEDS: Dorzolamide 2% Ophth Soln 10 ML Bottle EYEBOTH SCH ×2 (08:49→17:18)
[2019-10-27] MEDS: Cholecalciferol (Vitamin D3) 25 MCG Tab PO SCH (08:50)
[2019-10-27] MEDS: Acetaminophen 500 MG Tab PO SCH ×4 (08:50→20:17)
[2019-10-27] MEDS: TERIFLUNOMIDE 14 MG PO SCH (08:51)
[2019-10-27] MEDS: atorvaSTATin 20 MG Tab PO SCH (20:18)
[2019-10-27] MEDS: Latanoprost 0.005% Ophth Soln 2.5 ML Bottle EYEBOTH SCH (20:18)
[2019-10-28] MEDS: traMADol 50 MG Tab PO PRN ×2 (02:38→12:03)
[2019-10-28] MEDS: Dorzolamide 2% Ophth Soln 10 ML Bottle EYEBOTH SCH ×2 (09:34→17:59)
[2019-10-28] MEDS: Brimonidine 0.2% Ophth Soln 5 ML Bottle EYEBOTH SCH ×2 (09:35→18:01)
[2019-10-28] MEDS: Multivitamins with Iron/Calcium/Folic Acid/Minerals Tab PO SCH (09:37)
[2019-10-28] MEDS: Calcium Carbonate 500 MG Tablet PO SCH (09:38)
[2019-10-28] MEDS: Cholecalciferol (Vitamin D3) 25 MCG Tab PO SCH (09:38)
[2019-10-28] MEDS: Apixaban 5 MG Tab PO SCH ×2 (09:39→21:11)
[2019-10-28] MEDS: Citalopram 20 MG Tab PO SCH (09:40)
[2019-10-28] MEDS: DALFAMPRIDINE 10 MG PO SCH ×2 (09:40→21:11)
[2019-10-28] MEDS: Aspirin 81 MG Tab.Chew PO SCH (09:40)
[2019-10-28] MEDS: Acetaminophen 500 MG Tab PO SCH ×4 (09:41→21:11)
[2019-10-28] MEDS: TERIFLUNOMIDE 14 MG PO SCH (09:42)
[2019-10-28] MEDS: Latanoprost 0.005% Ophth Soln 2.5 ML Bottle EYEBOTH SCH (21:11)
[2019-10-28] MEDS: atorvaSTATin 20 MG Tab PO SCH (21:11)
[2019-10-29] MEDS: Acetaminophen 500 MG Tab PO PRN (03:38)
[2019-10-29] MEDS: traMADol 50 MG Tab PO PRN (07:32)
[2019-10-29] MEDS: Calcium Carbonate 500 MG Tablet PO SCH (08:25)
[2019-10-29] MEDS: Multivitamins with Iron/Calcium/Folic Acid/Minerals Tab PO SCH (08:25)
[2019-10-29] MEDS: Aspirin 81 MG Tab.Chew PO SCH (08:25)
[2019-10-29] MEDS: DALFAMPRIDINE 10 MG PO SCH ×2 (08:26→21:07)
[2019-10-29] MEDS: Citalopram 20 MG Tab PO SCH (08:26)
[2019-10-29] MEDS: Apixaban 5 MG Tab PO SCH ×2 (08:27→21:07)
[2019-10-29] MEDS: TERIFLUNOMIDE 14 MG PO SCH (08:28)
[2019-10-29] MEDS: Cholecalciferol (Vitamin D3) 25 MCG Tab PO SCH (08:29)
[2019-10-29] MEDS: Dorzolamide 2% Ophth Soln 10 ML Bottle EYEBOTH SCH ×2 (08:30→17:01)
[2019-10-29] MEDS: Brimonidine 0.2% Ophth Soln 5 ML Bottle EYEBOTH SCH ×2 (08:30→17:01)
[2019-10-29] MEDS: Acetaminophen 500 MG Tab PO SCH ×4 (10:35→21:07)
[2019-10-29] MEDS: atorvaSTATin 20 MG Tab PO SCH (21:07)
[2019-10-29] MEDS: Latanoprost 0.005% Ophth Soln 2.5 ML Bottle EYEBOTH SCH (21:07)
[2019-10-30] MEDS: traMADol 50 MG Tab PO PRN ×2 (04:54→08:54)
[2019-10-30] MEDS: Apixaban 5 MG Tab PO SCH ×2 (08:25→21:36)
[2019-10-30] MEDS: Multivitamins with Iron/Calcium/Folic Acid/Minerals Tab PO SCH (08:25)
[2019-10-30] MEDS: DALFAMPRIDINE 10 MG PO SCH ×2 (08:25→21:36)
[2019-10-30] MEDS: Calcium Carbonate 500 MG Tablet PO SCH (08:25)
[2019-10-30] MEDS: Brimonidine 0.2% Ophth Soln 5 ML Bottle EYEBOTH SCH ×2 (08:25→17:35)
[2019-10-30] MEDS: Aspirin 81 MG Tab.Chew PO SCH (08:25)
[2019-10-30] MEDS: Citalopram 20 MG Tab PO SCH (08:26)
[2019-10-30] MEDS: Cholecalciferol (Vitamin D3) 25 MCG Tab PO SCH (08:26)
[2019-10-30] MEDS: Acetaminophen 500 MG Tab PO SCH ×4 (08:26→21:36)
[2019-10-30] MEDS: TERIFLUNOMIDE 14 MG PO SCH (08:27)
[2019-10-30] MEDS: Dorzolamide 2% Ophth Soln 10 ML Bottle EYEBOTH SCH ×2 (08:30→17:34)
[2019-10-30] MEDS: Latanoprost 0.005% Ophth Soln 2.5 ML Bottle EYEBOTH SCH (21:36)
[2019-10-30] MEDS: atorvaSTATin 20 MG Tab PO SCH (21:36)
[2019-10-31] MEDS: traMADol 50 MG Tab PO PRN (06:05)
[2019-10-31] MEDS: Citalopram 20 MG Tab PO SCH (09:10)
[2019-10-31] MEDS: Aspirin 81 MG Tab.Chew PO SCH (09:10)
[2019-10-31] MEDS: TERIFLUNOMIDE 14 MG PO SCH (09:11)
[2019-10-31] MEDS: Brimonidine 0.2% Ophth Soln 5 ML Bottle EYEBOTH SCH ×2 (09:12→17:11)
[2019-10-31] MEDS: Dorzolamide 2% Ophth Soln 10 ML Bottle EYEBOTH SCH ×2 (09:12→17:08)
[2019-10-31] MEDS: Cholecalciferol (Vitamin D3) 25 MCG Tab PO SCH (09:13)
[2019-10-31] MEDS: Acetaminophen 500 MG Tab PO SCH ×4 (09:13→19:59)
[2019-10-31] MEDS: Multivitamins with Iron/Calcium/Folic Acid/Minerals Tab PO SCH (09:13)
[2019-10-31] MEDS: DALFAMPRIDINE 10 MG PO SCH ×2 (09:14→19:59)
[2019-10-31] MEDS: Apixaban 5 MG Tab PO SCH ×2 (09:14→19:59)
[2019-10-31] MEDS: Calcium Carbonate 500 MG Tablet PO SCH (09:14)
[2019-10-31] MEDS: atorvaSTATin 20 MG Tab PO SCH (19:59)
[2019-10-31] MEDS: Latanoprost 0.005% Ophth Soln 2.5 ML Bottle EYEBOTH SCH (20:01)
[2019-11-01] MEDS: traMADol 50 MG Tab PO PRN ×2 (05:59→13:22)
[2019-11-01] MEDS: Brimonidine 0.2% Ophth Soln 5 ML Bottle EYEBOTH SCH ×2 (08:17→17:23)
[2019-11-01] MEDS: Dorzolamide 2% Ophth Soln 10 ML Bottle EYEBOTH SCH ×2 (08:17→17:24)
[2019-11-01] MEDS: Aspirin 81 MG Tab.Chew PO SCH (08:18)
[2019-11-01] MEDS: Citalopram 20 MG Tab PO SCH (08:18)
[2019-11-01] MEDS: TERIFLUNOMIDE 14 MG PO SCH (08:18)
[2019-11-01] MEDS: Apixaban 5 MG Tab PO SCH ×2 (08:19→21:06)
[2019-11-01] MEDS: DALFAMPRIDINE 10 MG PO SCH ×2 (08:19→21:04)
[2019-11-01] MEDS: Acetaminophen 500 MG Tab PO SCH ×4 (08:19→21:05)
[2019-11-01] MEDS: Calcium Carbonate 500 MG Tablet PO SCH (08:19)
[2019-11-01] MEDS: Cholecalciferol (Vitamin D3) 25 MCG Tab PO SCH (08:20)
[2019-11-01] MEDS: Multivitamins with Iron/Calcium/Folic Acid/Minerals Tab PO SCH (08:20)
[2019-11-01] MEDS: atorvaSTATin 20 MG Tab PO SCH (21:06)
[2019-11-01] MEDS: Latanoprost 0.005% Ophth Soln 2.5 ML Bottle EYEBOTH SCH (21:07)
[2019-11-02] MEDS: traMADol 50 MG Tab PO PRN ×2 (05:31→23:21)
[2019-11-02] MEDS: Dorzolamide 2% Ophth Soln 10 ML Bottle EYEBOTH SCH ×2 (08:52→17:32)
[2019-11-02] MEDS: Citalopram 20 MG Tab PO SCH (08:52)
[2019-11-02] MEDS: Aspirin 81 MG Tab.Chew PO SCH (08:52)
[2019-11-02] MEDS: Brimonidine 0.2% Ophth Soln 5 ML Bottle EYEBOTH SCH ×2 (08:52→17:32)
[2019-11-02] MEDS: TERIFLUNOMIDE 14 MG PO SCH (08:52)
[2019-11-02] MEDS: Cholecalciferol (Vitamin D3) 25 MCG Tab PO SCH (08:53)
[2019-11-02] MEDS: Apixaban 5 MG Tab PO SCH ×2 (08:53→20:32)
[2019-11-02] MEDS: Calcium Carbonate 500 MG Tablet PO SCH (08:53)
[2019-11-02] MEDS: Multivitamins with Iron/Calcium/Folic Acid/Minerals Tab PO SCH (08:53)
[2019-11-02] MEDS: DALFAMPRIDINE 10 MG PO SCH ×2 (08:53→20:32)
[2019-11-02] MEDS: Acetaminophen 500 MG Tab PO SCH ×4 (08:53→20:32)
[2019-11-02] MEDS: atorvaSTATin 20 MG Tab PO SCH (20:32)
[2019-11-02] MEDS: Latanoprost 0.005% Ophth Soln 2.5 ML Bottle EYEBOTH SCH (20:32)
[2019-11-03] MEDS: traMADol 50 MG Tab PO PRN ×2 (05:30→14:06)
[2019-11-03] MEDS: Citalopram 20 MG Tab PO SCH (09:20)
[2019-11-03] MEDS: Brimonidine 0.2% Ophth Soln 5 ML Bottle EYEBOTH SCH ×2 (09:20→18:18)
[2019-11-03] MEDS: Aspirin 81 MG Tab.Chew PO SCH (09:20)
[2019-11-03] MEDS: Apixaban 5 MG Tab PO SCH ×2 (09:21→20:19)
[2019-11-03] MEDS: DALFAMPRIDINE 10 MG PO SCH ×2 (09:21→20:18)
[2019-11-03] MEDS: Calcium Carbonate 500 MG Tablet PO SCH (09:22)
[2019-11-03] MEDS: Dorzolamide 2% Ophth Soln 10 ML Bottle EYEBOTH SCH ×2 (09:23→18:19)
[2019-11-03] MEDS: Multivitamins with Iron/Calcium/Folic Acid/Minerals Tab PO SCH (09:23)
[2019-11-03] MEDS: TERIFLUNOMIDE 14 MG PO SCH (09:23)
[2019-11-03] MEDS: Acetaminophen 500 MG Tab PO SCH ×4 (09:24→20:19)
[2019-11-03] MEDS: Cholecalciferol (Vitamin D3) 25 MCG Tab PO SCH (09:24)
[2019-11-03] MEDS: Latanoprost 0.005% Ophth Soln 2.5 ML Bottle EYEBOTH SCH (20:19)
[2019-11-03] MEDS: atorvaSTATin 20 MG Tab PO SCH (20:19)
[2019-11-04] MEDS: traMADol 50 MG Tab PO PRN ×2 (01:48→23:37)
[2019-11-04] MEDS: Brimonidine 0.2% Ophth Soln 5 ML Bottle EYEBOTH SCH ×2 (08:24→17:28)
[2019-11-04] MEDS: Aspirin 81 MG Tab.Chew PO SCH (08:25)
[2019-11-04] MEDS: Citalopram 20 MG Tab PO SCH (08:26)
[2019-11-04] MEDS: Apixaban 5 MG Tab PO SCH ×2 (08:27→20:24)
[2019-11-04] MEDS: DALFAMPRIDINE 10 MG PO SCH ×2 (08:27→20:24)
[2019-11-04] MEDS: Calcium Carbonate 500 MG Tablet PO SCH (08:28)
[2019-11-04] MEDS: Multivitamins with Iron/Calcium/Folic Acid/Minerals Tab PO SCH (08:28)
[2019-11-04] MEDS: TERIFLUNOMIDE 14 MG PO SCH (08:29)
[2019-11-04] MEDS: Acetaminophen 500 MG Tab PO SCH ×4 (08:30→20:25)
[2019-11-04] MEDS: Cholecalciferol (Vitamin D3) 25 MCG Tab PO SCH (08:30)
[2019-11-04] MEDS: Dorzolamide 2% Ophth Soln 10 ML Bottle EYEBOTH SCH ×2 (08:30→17:29)
--- NOTE | 2019-11-04 09:23 | PCM.PN ---
- General Info Date of Service: 11/04/19 Admission Dx/Problem (Free Text): Cherrie is doing well this morning, no chest pain, shortness of breath, had bowel movement yesterday. No fevers or chills. Pain is controlled. - Patient Data Vitals - Most Recent: Last Vital Signs Temp 97.7 F 11/04/19 07:30 Pulse 83 11/04/19 07:30 Resp 20 11/04/19 07:30 BP 112/78 11/04/19 07:30 Pulse Ox 92 L 11/04/19 07:30 Weight - Most Recent: 121 lb 12.8 oz Med Orders - Current: Current Medications Acetaminophen (Tylenol Extra Strength) 500 mg PO QID [facility] Last Admin: 11/04/19 08:30 Dose: 500 mg Acetaminophen (Tylenol Extra Strength) 500 mg PO Q6H PRN PRN Reason: Pain (mild 1-3) Last Admin: 10/29/19 03:38 Dose: 500 mg Apixaban (Eliquis) 2.5 mg PO BID [facility] Stop: 11/09/19 09:01 Last Admin: 11/04/19 08:27 Dose: 2.5 mg Artificial Tears (Genteal Mild To Moderate Ophth Soln) 0 ml EYEBOTH ASDIRECTED PRN PRN Reason: DRY EYES Aspirin (Aspirin) 81 mg PO DAILY [facility] Last Admin: 11/04/19 08:25 Dose: 81 mg Atorvastatin Calcium (Lipitor) 20 mg PO BEDTIME [facility] Last Admin: 11/03/19 20:19 Dose: 20 mg Brimonidine Tartrate (Alphagan 0.2% Ophth Soln) 0 ml EYEBOTH BID@0900,1800 [facility] Last Admin: 11/04/19 08:24 Dose: 1 drop Calcium Carbonate/Glycine (Oyster Shell Calcium) 500 mg PO DAILY [facility] Last Admin: 11/04/19 08:28 Dose: 500 mg Cetirizine HCl (Zyrtec) 10 mg PO DAILY PRN PRN Reason: Allergies Cholecalciferol (Vitamin D3) 25 mcg PO DAILY [facility] Last Admin: 11/04/19 08:30 Dose: 25 mcg Citalopram Hydrobromide (Celexa) 20 mg PO DAILY [facility] Last Admin: 11/04/19 08:26 Dose: 20 mg Dalfampridine (Dalfampridine Er) 10 mg PO BID [facility] Last Admin: 11/04/19 08:27 Dose: 10 mg Dorzolamide HCl (Trusopt 2% Ophth Soln) 0 ml EYEBOTH BID@0900,1800 [facility] Last Admin: 11/04/19 08:30 Dose: 1 drop Latanoprost (Xalatan 0.005% Ophth Soln) 0 ml EYEBOTH BEDTIME [facility] Last Admin: 11/03/19 20:19 Dose: 1 drop Lutein (Lutein) 20 mg PO DAILY [facility] Last Admin: 11/04/19 08:27 Dose: 20 mg Multivitamins/Minerals (Thera M Plus) 1 tab PO DAILY [facility] Last Admin: 11/04/19 08:28 Dose: 1 tab (Teriflunomide [ Aubagio] 14 Mg) * Ptom 14 mg PO DAILY [facility] Last Admin: 11/04/19 08:29 Dose: 14 mg Sodium Chloride (Saline Flush) 10 ml FLUSH ASDIRECTED PRN PRN Reason: Keep Vein Open Last Admin: 10/14/19 19:40 Dose: 10 ml Tramadol HCl (Ultram) 50 mg PO Q4H PRN PRN Reason: LEG PAIN Last Admin: 11/04/19 01:48 Dose: 50 mg Discontinued Medications Acetaminophen (Tylenol Extra Strength) 1,000 mg PO TID [facility] Last Admin: 10/13/19 09:26 Dose: Not Given Acetaminophen (Tylenol Extra Strength) 500 mg PO Q4H [facility] Last Admin: 10/25/19 11:32 Dose: Not Given Acetaminophen (Tylenol Extra Strength) 1,000 mg PO TID [facility] Last Admin: 10/26/19 08:38 Dose: 1,000 mg Hydrocodone Bitart/Acetaminophen ([place] 325-5 Mg) 1 tab PO Q6H PRN PRN Reason: Pain Last Admin: 10/12/19 05:12 Dose: 1 tab Adenosine (Adenocard) 6 mg IVPUSH NOW ONE Stop: 10/12/19 08:50 Last Admin: 10/12/19 08:25 Dose: 6 mg Adenosine (Adenocard) 6 mg IVPUSH NOW ONE Stop: 10/14/19 18:56 Last Admin: 10/14/19 19:40 Dose: 6 mg Citalopram Hydrobromide (Celexa) 10 mg PO DAILY [facility] Last Admin: 10/19/19 08:24 Dose: 10 mg Diltiazem HCl (Cardizem Cd) 120 mg PO DAILY [facility] Last Admin: 10/12/19 09:23 Dose: 120 mg Non-Formulary Medication (Naproxen Sodium [Aleve]) 220 mg PO BID PRN PRN Reason: Pain Ondansetron HCl (Zofran) Confirm Administered Dose 4 mg .ROUTE .STK-MED ONE Stop: 10/12/19 08:28 Last Admin: 10/12/19 09:21 Dose: Not Given Ondansetron HCl (Zofran) 4 mg IVPUSH ONETIME ONE Stop: 10/12/19 09:31 Last Admin: 10/12/19 08:28 Dose: 4 mg Sodium Chloride (Saline Flush) 10 ml FLUSH BEDTIME [facility] Last Admin: 10/19/19 20:45 Dose: Not Given - Exam General: Alert, Oriented, Cooperative, No Acute Distress Lungs: Clear to Auscultation, Normal Respiratory Effort Cardiovascular: Regular Rate, Regular Rhythm GI/Abdominal Exam: Normal Bowel Sounds, Soft, Non-Tender, No Distention Extremities: No Pedal Edema Wound/Incisions: Healing Well, Dressing Dry and Intact (steri-strips in place, some are starting to loosen.), No Drainage Sepsis Event Note - Evaluation Sepsis Screening Result: No Definite Risk - Focused Exam Vital Signs: Vital Signs Temp Pulse Resp BP Pulse Ox 11/04/19 07:30 97.7 F 83 20 112/78 92 L Date Exam was Performed: 11/04/19 Time Exam was Performed: 09:19 - Problem List & Annotations (1) Fracture tibia/fibula SNOMED Code(s): 984324248 Code(s): S82.209A - UNSP FRACTURE OF SHAFT OF UNSP TIBIA, INIT FOR CLOS FX; S82.409A - UNSP FRACTURE OF SHAFT OF UNSP FIBULA, INIT FOR CLOS FX Status: Acute Current Visit: Yes Qualifiers: Encounter type: subsequent encounter (2) Glaucoma SNOMED Code(s): 58835160 Code(s): H40.9 - UNSPECIFIED GLAUCOMA Status: Chronic Current Visit: Yes (3) HLD (hyperlipidemia) SNOMED Code(s): 07579407 Code(s): E78.5 - HYPERLIPIDEMIA, UNSPECIFIED Status: Chronic Current Visit: Yes Qualifiers: Hyperlipidemia type: unspecified Qualified Code(s): E78.5 - Hyperlipidemia , unspecified (4) MDD (major depressive disorder) SNOMED Code(s): 229866536 Code(s): F32.9 - MAJOR DEPRESSIVE DISORDER, SINGLE EPISODE, UNSPECIFIED Status: Chronic Current Visit: Yes Qualifiers: Major depression recurrence: recurrent (5) Osteoporosis SNOMED Code(s): 87160549 Code(s): M81.0 - AGE-RELATED OSTEOPOROSIS W/O CURRENT PATHOLOGICAL FRACTURE Status: Chronic Current Visit: Yes Qualifiers: Osteoporosis type: age-related (6) PSVT (paroxysmal supraventricular tachycardia) SNOMED Code(s): 88335103 Code(s): I47.1 - SUPRAVENTRICULAR TACHYCARDIA Status: Chronic Current Visit: Yes (7) Tobacco abuse SNOMED Code(s): 467766837 Code(s): Z72.0 - TOBACCO USE Status: Chronic Current Visit: Yes (8) Multiple sclerosis SNOMED Code(s): 12313251 Code(s): G35 - MULTIPLE SCLEROSIS Status: Chronic Current Visit: Yes - Problem List Review Problem List Initiated/Reviewed/Updated: Yes - Plan Plan:: No change to her current regiment at this time. Continue PT/OT. Waiting [place] approval for SNF placement.
[2019-11-04] MEDS: atorvaSTATin 20 MG Tab PO SCH (20:24)
[2019-11-04] MEDS: Latanoprost 0.005% Ophth Soln 2.5 ML Bottle EYEBOTH SCH (20:25)
[2019-11-05] MEDS: traMADol 50 MG Tab PO PRN ×2 (06:34→23:40)
[2019-11-05] MEDS: Brimonidine 0.2% Ophth Soln 5 ML Bottle EYEBOTH SCH ×2 (09:11→17:05)
[2019-11-05] MEDS: Apixaban 5 MG Tab PO SCH ×2 (09:12→20:23)
[2019-11-05] MEDS: Aspirin 81 MG Tab.Chew PO SCH (09:12)
[2019-11-05] MEDS: Cholecalciferol (Vitamin D3) 25 MCG Tab PO SCH (09:12)
[2019-11-05] MEDS: Calcium Carbonate 500 MG Tablet PO SCH (09:13)
[2019-11-05] MEDS: DALFAMPRIDINE 10 MG PO SCH ×2 (09:14→20:23)
[2019-11-05] MEDS: Dorzolamide 2% Ophth Soln 10 ML Bottle EYEBOTH SCH ×2 (09:14→17:06)
[2019-11-05] MEDS: Multivitamins with Iron/Calcium/Folic Acid/Minerals Tab PO SCH (09:14)
[2019-11-05] MEDS: Citalopram 20 MG Tab PO SCH (09:14)
[2019-11-05] MEDS: Acetaminophen 500 MG Tab PO SCH ×4 (09:14→20:24)
[2019-11-05] MEDS: TERIFLUNOMIDE 14 MG PO SCH (09:15)
[2019-11-05] MEDS: Latanoprost 0.005% Ophth Soln 2.5 ML Bottle EYEBOTH SCH (20:24)
[2019-11-05] MEDS: atorvaSTATin 20 MG Tab PO SCH (20:24)
[2019-11-06] MEDS: traMADol 50 MG Tab PO PRN ×2 (06:41→10:42)
[2019-11-06] MEDS: DALFAMPRIDINE 10 MG PO SCH ×2 (08:38→21:44)
[2019-11-06] MEDS: Aspirin 81 MG Tab.Chew PO SCH (08:38)
[2019-11-06] MEDS: Citalopram 20 MG Tab PO SCH (08:38)
[2019-11-06] MEDS: Cholecalciferol (Vitamin D3) 25 MCG Tab PO SCH (08:39)
[2019-11-06] MEDS: Calcium Carbonate 500 MG Tablet PO SCH (08:39)
[2019-11-06] MEDS: Apixaban 5 MG Tab PO SCH ×2 (08:39→21:45)
[2019-11-06] MEDS: Acetaminophen 500 MG Tab PO SCH ×4 (08:39→21:46)
[2019-11-06] MEDS: Multivitamins with Iron/Calcium/Folic Acid/Minerals Tab PO SCH (08:39)
[2019-11-06] MEDS: TERIFLUNOMIDE 14 MG PO SCH (08:39)
[2019-11-06] MEDS: Dorzolamide 2% Ophth Soln 10 ML Bottle EYEBOTH SCH ×2 (08:40→17:27)
[2019-11-06] MEDS: Brimonidine 0.2% Ophth Soln 5 ML Bottle EYEBOTH SCH ×2 (08:40→17:27)
[2019-11-06] MEDS: atorvaSTATin 20 MG Tab PO SCH (21:45)
[2019-11-06] MEDS: Latanoprost 0.005% Ophth Soln 2.5 ML Bottle EYEBOTH SCH (21:46)
[2019-11-07] MEDS: traMADol 50 MG Tab PO PRN ×2 (02:49→11:35)
[2019-11-07] MEDS: Citalopram 20 MG Tab PO SCH (09:09)
[2019-11-07] MEDS: Aspirin 81 MG Tab.Chew PO SCH (09:09)
[2019-11-07] MEDS: Brimonidine 0.2% Ophth Soln 5 ML Bottle EYEBOTH SCH ×2 (09:09→17:27)
[2019-11-07] MEDS: TERIFLUNOMIDE 14 MG PO SCH (09:10)
[2019-11-07] MEDS: Apixaban 5 MG Tab PO SCH ×2 (09:10→21:42)
[2019-11-07] MEDS: DALFAMPRIDINE 10 MG PO SCH ×2 (09:10→21:43)
[2019-11-07] MEDS: Calcium Carbonate 500 MG Tablet PO SCH (09:10)
[2019-11-07] MEDS: Multivitamins with Iron/Calcium/Folic Acid/Minerals Tab PO SCH (09:10)
[2019-11-07] MEDS: Acetaminophen 500 MG Tab PO SCH ×4 (09:11→21:42)
[2019-11-07] MEDS: Cholecalciferol (Vitamin D3) 25 MCG Tab PO SCH (09:11)
[2019-11-07] MEDS: Dorzolamide 2% Ophth Soln 10 ML Bottle EYEBOTH SCH ×2 (09:11→17:27)
[2019-11-07] MEDS: atorvaSTATin 20 MG Tab PO SCH (21:42)
[2019-11-07] MEDS: Latanoprost 0.005% Ophth Soln 2.5 ML Bottle EYEBOTH SCH (21:43)
[2019-11-08] MEDS: traMADol 50 MG Tab PO PRN ×2 (02:21→09:32)
[2019-11-08] MEDS: Brimonidine 0.2% Ophth Soln 5 ML Bottle EYEBOTH SCH ×2 (09:29→19:28)
[2019-11-08] MEDS: Citalopram 20 MG Tab PO SCH (09:29)
[2019-11-08] MEDS: DALFAMPRIDINE 10 MG PO SCH ×2 (09:29→21:20)
[2019-11-08] MEDS: Aspirin 81 MG Tab.Chew PO SCH (09:29)
[2019-11-08] MEDS: Calcium Carbonate 500 MG Tablet PO SCH (09:30)
[2019-11-08] MEDS: Apixaban 5 MG Tab PO SCH ×2 (09:30→21:20)
[2019-11-08] MEDS: Multivitamins with Iron/Calcium/Folic Acid/Minerals Tab PO SCH (09:31)
[2019-11-08] MEDS: TERIFLUNOMIDE 14 MG PO SCH (09:31)
[2019-11-08] MEDS: Acetaminophen 500 MG Tab PO SCH ×4 (09:32→21:20)
[2019-11-08] MEDS: Cholecalciferol (Vitamin D3) 25 MCG Tab PO SCH (09:32)
[2019-11-08] MEDS: Dorzolamide 2% Ophth Soln 10 ML Bottle EYEBOTH SCH ×2 (09:32→18:30)
[2019-11-08] MEDS ORDERED: hydrOXYzine HCl 25 MG Tab PO PRN (09:50)
[2019-11-08] MEDS: atorvaSTATin 20 MG Tab PO SCH (21:20)
[2019-11-08] MEDS: Latanoprost 0.005% Ophth Soln 2.5 ML Bottle EYEBOTH SCH (21:21)
[2019-11-09] MEDS: traMADol 50 MG Tab PO PRN (06:32)
[2019-11-09] MEDS: Dorzolamide 2% Ophth Soln 10 ML Bottle EYEBOTH SCH ×2 (09:01→17:47)
[2019-11-09] MEDS: Aspirin 81 MG Tab.Chew PO SCH (09:02)
[2019-11-09] MEDS: Citalopram 10 MG Tab PO SCH (09:03)
[2019-11-09] MEDS: DALFAMPRIDINE 10 MG PO SCH ×2 (09:04→21:02)
[2019-11-09] MEDS: Apixaban 5 MG Tab PO SCH (09:05)
[2019-11-09] MEDS: Calcium Carbonate 500 MG Tablet PO SCH (09:06)
[2019-11-09] MEDS: TERIFLUNOMIDE 14 MG PO SCH (09:06)
[2019-11-09] MEDS: Multivitamins with Iron/Calcium/Folic Acid/Minerals Tab PO SCH (09:07)
[2019-11-09] MEDS: Acetaminophen 500 MG Tab PO SCH ×4 (09:08→21:02)
[2019-11-09] MEDS: Cholecalciferol (Vitamin D3) 25 MCG Tab PO SCH (09:08)
[2019-11-09] MEDS: Brimonidine 0.2% Ophth Soln 5 ML Bottle EYEBOTH SCH ×2 (09:09→17:45)
[2019-11-09] MEDS: Latanoprost 0.005% Ophth Soln 2.5 ML Bottle EYEBOTH SCH (21:02)
[2019-11-09] MEDS: atorvaSTATin 20 MG Tab PO SCH (21:02)
[2019-11-10] MEDS: traMADol 50 MG Tab PO PRN ×2 (01:43→23:50)
[2019-11-10] MEDS: Brimonidine 0.2% Ophth Soln 5 ML Bottle EYEBOTH SCH ×2 (08:07→17:35)
[2019-11-10] MEDS: Aspirin 81 MG Tab.Chew PO SCH (08:09)
[2019-11-10] MEDS: Citalopram 10 MG Tab PO SCH (08:10)
[2019-11-10] MEDS: DALFAMPRIDINE 10 MG PO SCH ×2 (08:11→20:44)
[2019-11-10] MEDS: Calcium Carbonate 500 MG Tablet PO SCH (08:11)
[2019-11-10] MEDS: TERIFLUNOMIDE 14 MG PO SCH (08:12)
[2019-11-10] MEDS: Dorzolamide 2% Ophth Soln 10 ML Bottle EYEBOTH SCH ×2 (08:12→17:36)
[2019-11-10] MEDS: Multivitamins with Iron/Calcium/Folic Acid/Minerals Tab PO SCH (08:12)
[2019-11-10] MEDS: Acetaminophen 500 MG Tab PO SCH ×4 (08:13→20:44)
[2019-11-10] MEDS: Cholecalciferol (Vitamin D3) 25 MCG Tab PO SCH (08:13)
[2019-11-10] MEDS: Latanoprost 0.005% Ophth Soln 2.5 ML Bottle EYEBOTH SCH (20:44)
[2019-11-10] MEDS: atorvaSTATin 20 MG Tab PO SCH (20:44)
[2019-11-11] MEDS: Dorzolamide 2% Ophth Soln 10 ML Bottle EYEBOTH SCH ×2 (08:21→17:14)
[2019-11-11] MEDS: Brimonidine 0.2% Ophth Soln 5 ML Bottle EYEBOTH SCH ×2 (08:21→17:14)
[2019-11-11] MEDS: Citalopram 10 MG Tab PO SCH (08:23)
[2019-11-11] MEDS: Aspirin 81 MG Tab.Chew PO SCH (08:24)
[2019-11-11] MEDS: DALFAMPRIDINE 10 MG PO SCH ×2 (08:24→20:22)
[2019-11-11] MEDS: TERIFLUNOMIDE 14 MG PO SCH (08:25)
[2019-11-11] MEDS: Multivitamins with Iron/Calcium/Folic Acid/Minerals Tab PO SCH (08:26)
[2019-11-11] MEDS: Calcium Carbonate 500 MG Tablet PO SCH (08:26)
[2019-11-11] MEDS: Acetaminophen 500 MG Tab PO SCH ×4 (08:26→20:22)
[2019-11-11] MEDS: Cholecalciferol (Vitamin D3) 25 MCG Tab PO SCH (08:27)
--- NOTE | 2019-11-11 10:31 | PCM.PN ---
- General Info Date of Service: 11/11/19 Admission Dx/Problem (Free Text): Kaykay is doing well, no trouble with her diet, no fevers, chills, shortness of breath, nausea or diarrhea. She thinks she is feeling better as far as her anxiety, less panic attacks. Nursing and PT/OT report that her anxiety and panic attacks have really improved this week as she has advanced in her therapies more than last week; they noticed improvement after her dose of Citalopram was increased to 30 mg daily. She has not taken Hydroxyzine for anxiety. Functional Status: Reports: Pain Controlled, Tolerating Diet, Urinating. Denies: New Symptoms - Patient Data Vitals - Most Recent: Last Vital Signs Temp 98.6 F 11/10/19 08:00 Pulse 87 11/10/19 08:00 Resp 16 11/10/19 08:00 BP 105/68 11/10/19 08:00 Pulse Ox 92 L 11/10/19 08:00 Weight - Most Recent: 123 lb 8 oz Med Orders - Current: Current Medications Acetaminophen (Tylenol Extra Strength) 500 mg PO QID [facility] Last Admin: 11/11/19 08:26 Dose: 500 mg Documented by: Acetaminophen (Tylenol Extra Strength) 500 mg PO Q6H PRN PRN Reason: Pain (mild 1-3) Last Admin: 10/29/19 03:38 Dose: 500 mg Documented by: Artificial Tears (Genteal Mild To Moderate Ophth Soln) 0 ml EYEBOTH ASDIRECTED PRN PRN Reason: DRY EYES Aspirin (Aspirin) 81 mg PO DAILY [facility] Last Admin: 11/11/19 08:24 Dose: 81 mg Documented by: Atorvastatin Calcium (Lipitor) 20 mg PO BEDTIME [facility] Last Admin: 11/10/19 20:44 Dose: 20 mg Documented by: Brimonidine Tartrate (Alphagan 0.2% Ophth Soln) 0 ml EYEBOTH BID@0900,1800 [facility] Last Admin: 11/11/19 08:21 Dose: 1 drop Documented by: Calcium Carbonate/Glycine (Oyster Shell Calcium) 500 mg PO DAILY [facility] Last Admin: 11/11/19 08:26 Dose: 500 mg Documented by: Cetirizine HCl (Zyrtec) 10 mg PO DAILY PRN PRN Reason: Allergies Cholecalciferol (Vitamin D3) 25 mcg PO DAILY [facility] Last Admin: 11/11/19 08:27 Dose: 25 mcg Documented by: Citalopram Hydrobromide (Celexa) 30 mg PO DAILY [facility] Last Admin: 11/11/19 08:23 Dose: 30 mg Documented by: Dalfampridine (Dalfampridine Er) 10 mg PO BID [facility] Last Admin: 11/11/19 08:24 Dose: 10 mg Documented by: Dorzolamide HCl (Trusopt 2% Ophth Soln) 0 ml EYEBOTH BID@0900,1800 [facility] Last Admin: 11/11/19 08:21 Dose: 1 drop Documented by: Hydroxyzine HCl (Atarax) 25 mg PO TID PRN PRN Reason: ANXIETY Latanoprost (Xalatan 0.005% Ophth Soln) 0 ml EYEBOTH BEDTIME [facility] Last Admin: 11/10/19 20:44 Dose: 1 drop Documented by: Lutein (Lutein) 20 mg PO DAILY [facility] Last Admin: 11/11/19 08:25 Dose: 20 mg Documented by: Multivitamins/Minerals (Thera M Plus) 1 tab PO DAILY [facility] Last Admin: 11/11/19 08:26 Dose: 1 tab Documented by: (Teriflunomide [ Aubagio] 14 Mg) * Ptom 14 mg PO DAILY [facility] Last Admin: 11/11/19 08:25 Dose: 14 mg Documented by: Sodium Chloride (Saline Flush) 10 ml FLUSH ASDIRECTED PRN PRN Reason: Keep Vein Open Last Admin: 10/14/19 19:40 Dose: 10 ml Documented by: Tramadol HCl (Ultram) 50 mg PO Q4H PRN PRN Reason: LEG PAIN Last Admin: 11/10/19 23:50 Dose: 50 mg Documented by: Discontinued Medications Acetaminophen (Tylenol Extra Strength) 1,000 mg PO TID [facility] Last Admin: 10/13/19 09:26 Dose: Not Given Documented by: Acetaminophen (Tylenol Extra Strength) 500 mg PO Q4H [facility] Last Admin: 10/25/19 11:32 Dose: Not Given Documented by: Acetaminophen (Tylenol Extra Strength) 1,000 mg PO TID [facility] Last Admin: 10/26/19 08:38 Dose: 1,000 mg Documented by: Hydrocodone Bitart/Acetaminophen ([place] 325-5 Mg) 1 tab PO Q6H PRN PRN Reason: Pain Last Admin: 10/12/19 05:12 Dose: 1 tab Documented by: Adenosine (Adenocard) 6 mg IVPUSH NOW ONE Stop: 10/12/19 08:50 Last Admin: 10/12/19 08:25 Dose: 6 mg Documented by: Adenosine (Adenocard) 6 mg IVPUSH NOW ONE Stop: 10/14/19 18:56 Last Admin: 10/14/19 19:40 Dose: 6 mg Documented by: Apixaban (Eliquis) 2.5 mg PO BID [facility] Stop: 11/09/19 09:01 Last Admin: 11/09/19 09:05 Dose: 2.5 mg Documented by: Citalopram Hydrobromide (Celexa) 10 mg PO DAILY [facility] Last Admin: 10/19/19 08:24 Dose: 10 mg Documented by: Citalopram Hydrobromide (Celexa) 20 mg PO DAILY [facility] Last Admin: 11/08/19 09:29 Dose: 20 mg Documented by: Diltiazem HCl (Cardizem Cd) 120 mg PO DAILY [facility] Last Admin: 10/12/19 09:23 Dose: 120 mg Documented by: Non-Formulary Medication (Naproxen Sodium [Aleve]) 220 mg PO BID PRN PRN Reason: Pain Ondansetron HCl (Zofran) Confirm Administered Dose 4 mg .ROUTE .STK-MED ONE Stop: 10/12/19 08:28 Last Admin: 10/12/19 09:21 Dose: Not Given Documented by: Ondansetron HCl (Zofran) 4 mg IVPUSH ONETIME ONE Stop: 10/12/19 09:31 Last Admin: 10/12/19 08:28 Dose: 4 mg Documented by: Sodium Chloride (Saline Flush) 10 ml FLUSH BEDTIME [facility] Last Admin: 10/19/19 20:45 Dose: Not Given Documented by: - Exam General: Alert, Oriented, Cooperative, No Acute Distress Lungs: Clear to Auscultation, Normal Respiratory Effort Cardiovascular: Regular Rate, Regular Rhythm GI/Abdominal Exam: Normal Bowel Sounds, Soft, Non-Tender, No Distention Extremities: No Pedal Edema Peripheral Pulses: 2+: Radial (L), Radial (R) Wound/Incisions: Healing Well (few steri-strips in place, incision healing well.) Sepsis Event Note - Evaluation Sepsis Screening Result: No Definite Risk - Focused Exam Date Exam was Performed: 11/11/19 Time Exam was Performed: 10:26 - Problem List & Annotations (1) Fracture tibia/fibula SNOMED Code(s): 355626712 Code(s): S82.209A - UNSP FRACTURE OF SHAFT OF UNSP TIBIA, INIT FOR CLOS FX; S82.409A - UNSP FRACTURE OF SHAFT OF UNSP FIBULA, INIT FOR CLOS FX Status: Acu te Current Visit: Yes Qualifiers: Encounter type: subsequent encounter (2) Glaucoma SNOMED Code(s): 53904315 Code(s): H40.9 - UNSPECIFIED GLAUCOMA Status: Chronic Current Visit: Yes (3) HLD (hyperlipidemia) SNOMED Code(s): 85160862 Code(s): E78.5 - HYPERLIPIDEMIA, UNSPECIFIED Status: Chronic Current Visit: Yes Qualifiers: Hyperlipidemia type: unspecified Qualified Code(s): E78.5 - Hyperlipidemia, unspecified (4) MDD (major depressive disorder) SNOMED Code(s): 116727601 Code(s): F32.9 - MAJOR DEPRESSIVE DISORDER, SINGLE EPISODE, UNSPECIFIED Status: Chronic Current Visit: Yes Qualifiers: Major depression recurrence: recurrent (5) Osteoporosis SNOMED Code(s): 27651626 Code(s): M81.0 - AGE-RELATED OSTEOPOROSIS W/O CURRENT PATHOLOGICAL FRACTURE Status: Chronic Current Visit: Yes Qualifiers: Osteoporosis type: age-related (6) PSVT (paroxysmal supraventricular tachycardia) SNOMED Code(s): 40338987 Code(s): I47.1 - SUPRAVENTRICULAR TACHYCARDIA Status: Chronic Current Visit: Yes (7) Tobacco abuse SNOMED Code(s): 765558608 Code(s): Z72.0 - TOBACCO USE Status: Chronic Current Visit: Yes (8) Multiple sclerosis SNOMED Code(s): 41024300 Code(s): G35 - MULTIPLE SCLEROSIS Status: Chronic Current Visit: Yes - Problem List Review Problem List Initiated/Reviewed/Updated: Yes - Plan Plan:: Had increased her Citalopram to 30 mg daily, will continue. Hydroxyzine 25 mg prn anxiety. Continue PT/OT. Waiting [place] approval for SNF placement.
[2019-11-11] MEDS: traMADol 50 MG Tab PO PRN (15:09)
[2019-11-11] MEDS: atorvaSTATin 20 MG Tab PO SCH (20:22)
[2019-11-11] MEDS: Latanoprost 0.005% Ophth Soln 2.5 ML Bottle EYEBOTH SCH (20:23)
[2019-11-12] MEDS: traMADol 50 MG Tab PO PRN (03:39)
[2019-11-12] MEDS: Citalopram 10 MG Tab PO SCH (08:57)
[2019-11-12] MEDS: DALFAMPRIDINE 10 MG PO SCH ×2 (08:57→20:28)
[2019-11-12] MEDS: Aspirin 81 MG Tab.Chew PO SCH (08:57)
[2019-11-12] MEDS: TERIFLUNOMIDE 14 MG PO SCH (08:58)
[2019-11-12] MEDS: Calcium Carbonate 500 MG Tablet PO SCH (08:58)
[2019-11-12] MEDS: Acetaminophen 500 MG Tab PO SCH ×4 (08:59→20:28)
[2019-11-12] MEDS: Cholecalciferol (Vitamin D3) 25 MCG Tab PO SCH (08:59)
[2019-11-12] MEDS: Multivitamins with Iron/Calcium/Folic Acid/Minerals Tab PO SCH (08:59)
[2019-11-12] MEDS: Dorzolamide 2% Ophth Soln 10 ML Bottle EYEBOTH SCH ×2 (09:00→18:16)
[2019-11-12] MEDS: Brimonidine 0.2% Ophth Soln 5 ML Bottle EYEBOTH SCH ×2 (09:00→18:16)
[2019-11-12] MEDS: atorvaSTATin 20 MG Tab PO SCH (20:28)
[2019-11-12] MEDS: Latanoprost 0.005% Ophth Soln 2.5 ML Bottle EYEBOTH SCH (20:28)
[2019-11-13] MEDS: Dorzolamide 2% Ophth Soln 10 ML Bottle EYEBOTH SCH ×2 (09:33→17:30)
[2019-11-13] MEDS: Aspirin 81 MG Tab.Chew PO SCH (09:34)
[2019-11-13] MEDS: DALFAMPRIDINE 10 MG PO SCH ×2 (09:34→20:01)
[2019-11-13] MEDS: Brimonidine 0.2% Ophth Soln 5 ML Bottle EYEBOTH SCH ×2 (09:34→17:30)
[2019-11-13] MEDS: Cholecalciferol (Vitamin D3) 25 MCG Tab PO SCH (09:34)
[2019-11-13] MEDS: Multivitamins with Iron/Calcium/Folic Acid/Minerals Tab PO SCH (09:34)
[2019-11-13] MEDS: Acetaminophen 500 MG Tab PO SCH ×4 (09:34→20:03)
[2019-11-13] MEDS: Citalopram 10 MG Tab PO SCH (09:34)
[2019-11-13] MEDS: Calcium Carbonate 500 MG Tablet PO SCH (09:35)
[2019-11-13] MEDS: TERIFLUNOMIDE 14 MG PO SCH (09:35)
[2019-11-13] MEDS: atorvaSTATin 20 MG Tab PO SCH (20:02)
[2019-11-13] MEDS: Latanoprost 0.005% Ophth Soln 2.5 ML Bottle EYEBOTH SCH (20:03)
[2019-11-14] MEDS: Brimonidine 0.2% Ophth Soln 5 ML Bottle EYEBOTH SCH ×2 (08:07→17:39)
[2019-11-14] MEDS: Aspirin 81 MG Tab.Chew PO SCH (08:07)
[2019-11-14] MEDS: Calcium Carbonate 500 MG Tablet PO SCH (08:08)
[2019-11-14] MEDS: Citalopram 10 MG Tab PO SCH (08:08)
[2019-11-14] MEDS: TERIFLUNOMIDE 14 MG PO SCH (08:08)
[2019-11-14] MEDS: DALFAMPRIDINE 10 MG PO SCH ×2 (08:08→20:06)
[2019-11-14] MEDS: Multivitamins with Iron/Calcium/Folic Acid/Minerals Tab PO SCH (08:09)
[2019-11-14] MEDS: Dorzolamide 2% Ophth Soln 10 ML Bottle EYEBOTH SCH ×2 (08:09→17:39)
[2019-11-14] MEDS: Cholecalciferol (Vitamin D3) 25 MCG Tab PO SCH (08:09)
[2019-11-14] MEDS: Acetaminophen 500 MG Tab PO SCH ×4 (08:09→20:06)
[2019-11-14] MEDS: traMADol 50 MG Tab PO PRN (11:07)
[2019-11-14] MEDS: atorvaSTATin 20 MG Tab PO SCH (20:06)
[2019-11-14] MEDS: Latanoprost 0.005% Ophth Soln 2.5 ML Bottle EYEBOTH SCH (20:06)
[2019-11-15] MEDS: Acetaminophen 500 MG Tab PO PRN (06:57)
[2019-11-15] MEDS: Calcium Carbonate 500 MG Tablet PO SCH (09:37)
[2019-11-15] MEDS: DALFAMPRIDINE 10 MG PO SCH ×2 (09:37→20:20)
[2019-11-15] MEDS: Cholecalciferol (Vitamin D3) 25 MCG Tab PO SCH (09:37)
[2019-11-15] MEDS: Brimonidine 0.2% Ophth Soln 5 ML Bottle EYEBOTH SCH ×2 (09:37→18:02)
[2019-11-15] MEDS: Aspirin 81 MG Tab.Chew PO SCH (09:37)
[2019-11-15] MEDS: Multivitamins with Iron/Calcium/Folic Acid/Minerals Tab PO SCH (09:37)
[2019-11-15] MEDS: Acetaminophen 500 MG Tab PO SCH ×4 (09:38→20:20)
[2019-11-15] MEDS: TERIFLUNOMIDE 14 MG PO SCH (09:38)
[2019-11-15] MEDS: Dorzolamide 2% Ophth Soln 10 ML Bottle EYEBOTH SCH ×2 (09:38→18:01)
[2019-11-15] MEDS: Citalopram 10 MG Tab PO SCH (09:39)
[2019-11-15] MEDS ORDERED: Enoxaparin 40 MG/0.4 ML Syringe SUBCUT SCH (10:00)
[2019-11-15] MEDS: Latanoprost 0.005% Ophth Soln 2.5 ML Bottle EYEBOTH SCH (20:20)
[2019-11-15] MEDS: atorvaSTATin 20 MG Tab PO SCH (20:20)
[2019-11-16] MEDS: traMADol 50 MG Tab PO PRN (04:00)
[2019-11-16] MEDS: TERIFLUNOMIDE 14 MG PO SCH (09:18)
[2019-11-16] MEDS: DALFAMPRIDINE 10 MG PO SCH ×2 (09:19→21:13)
[2019-11-16] MEDS: Brimonidine 0.2% Ophth Soln 5 ML Bottle EYEBOTH SCH ×2 (09:19→17:19)
[2019-11-16] MEDS: Multivitamins with Iron/Calcium/Folic Acid/Minerals Tab PO SCH (09:19)
[2019-11-16] MEDS: Acetaminophen 500 MG Tab PO SCH ×4 (09:20→21:15)
[2019-11-16] MEDS: Calcium Carbonate 500 MG Tablet PO SCH (09:20)
[2019-11-16] MEDS: Cholecalciferol (Vitamin D3) 25 MCG Tab PO SCH (09:20)
[2019-11-16] MEDS: Citalopram 10 MG Tab PO SCH (09:20)
[2019-11-16] MEDS: Aspirin 81 MG Tab.Chew PO SCH (09:21)
[2019-11-16] MEDS: Dorzolamide 2% Ophth Soln 10 ML Bottle EYEBOTH SCH ×2 (09:21→17:20)
[2019-11-16] MEDS: atorvaSTATin 20 MG Tab PO SCH (21:13)
[2019-11-16] MEDS: Latanoprost 0.005% Ophth Soln 2.5 ML Bottle EYEBOTH SCH (21:16)
[2019-11-17] MEDS: traMADol 50 MG Tab PO PRN (06:26)
[2019-11-17] MEDS: Citalopram 10 MG Tab PO SCH (08:30)
[2019-11-17] MEDS: Aspirin 81 MG Tab.Chew PO SCH (08:30)
[2019-11-17] MEDS: Dorzolamide 2% Ophth Soln 10 ML Bottle EYEBOTH SCH ×2 (08:30→18:30)
[2019-11-17] MEDS: Brimonidine 0.2% Ophth Soln 5 ML Bottle EYEBOTH SCH ×2 (08:30→18:29)
[2019-11-17] MEDS: DALFAMPRIDINE 10 MG PO SCH ×2 (08:31→20:52)
[2019-11-17] MEDS: Multivitamins with Iron/Calcium/Folic Acid/Minerals Tab PO SCH (08:31)
[2019-11-17] MEDS: TERIFLUNOMIDE 14 MG PO SCH (08:31)
[2019-11-17] MEDS: Acetaminophen 500 MG Tab PO SCH ×4 (08:31→20:50)
[2019-11-17] MEDS: Calcium Carbonate 500 MG Tablet PO SCH (08:31)
[2019-11-17] MEDS: Cholecalciferol (Vitamin D3) 25 MCG Tab PO SCH (08:32)
--- NOTE | 2019-11-17 13:17 | PN ---
DATE SEEN: 11/17/2019 SUBJECTIVE: Kaykay Cervantes is a 59-year-old female, long-term care. She has been here since 10/11, had a complicated femur fracture. Doing well in that regard. Medications were adjusted, particularly anxiolytics and has been in better spirits. Medications reviewed and appropriate. Present hydroxyzine and care. OBJECTIVE: GENERAL: Appears comfortable. Brace was in place. NECK: Benign. Thyroid small. CHEST: Clear all lung coats. HEART: No ectopy or murmur. ABDOMEN: Benign. ASSESSMENT: Complicated femur fracture. PLAN: Continue therapy as present. Discharge planning, usp there has been some issues of insurance, medical assistance opportunities, nonweightbearing till this upcoming December, MS complicating recovery. /[id number] 1211 SLIME/GUERITA
[2019-11-17] MEDS: atorvaSTATin 20 MG Tab PO SCH (20:50)
[2019-11-17] MEDS: Latanoprost 0.005% Ophth Soln 2.5 ML Bottle EYEBOTH SCH (20:50)
[2019-11-18] MEDS: traMADol 50 MG Tab PO PRN (01:57)
[2019-11-18] MEDS: Citalopram 10 MG Tab PO SCH (08:50)
[2019-11-18] MEDS: Aspirin 81 MG Tab.Chew PO SCH (08:50)
[2019-11-18] MEDS: Dorzolamide 2% Ophth Soln 10 ML Bottle EYEBOTH SCH ×2 (08:50→17:29)
[2019-11-18] MEDS: Brimonidine 0.2% Ophth Soln 5 ML Bottle EYEBOTH SCH ×2 (08:50→17:29)
[2019-11-18] MEDS: TERIFLUNOMIDE 14 MG PO SCH (08:51)
[2019-11-18] MEDS: Cholecalciferol (Vitamin D3) 25 MCG Tab PO SCH (08:51)
[2019-11-18] MEDS: Calcium Carbonate 500 MG Tablet PO SCH (08:52)
[2019-11-18] MEDS: Acetaminophen 500 MG Tab PO SCH ×4 (08:52→20:54)
[2019-11-18] MEDS: DALFAMPRIDINE 10 MG PO SCH ×2 (08:52→20:54)
[2019-11-18] MEDS: Multivitamins with Iron/Calcium/Folic Acid/Minerals Tab PO SCH (08:52)
--- NOTE | 2019-11-18 13:04 | PN ---
DATE SEEN: 11/18/2019 SUBJECTIVE: Kaykay Cervantes is a young lady of 59 years, seen today for review. Had a complicated right lower leg tibia-fibula fracture. Non-weight bearing. Living situation maintained. alf is not allowable at this time medical assistance. Doing well with her pain. Mood appears to be more stable. OBJECTIVE: VITAL SIGNS: Stable. NECK: Benign. Thyroid small. CHEST: Clear in all lung coats. HEART: No ectopy or murmur. ABDOMEN: Benign. EXTREMITIES: Surgical wound in right lower leg healing well. ASSESSMENT: Complicated right lower extremity fractures. PLAN: PT intervention and care in place. /[id number] [id number] SLIME/GUERITA
[2019-11-18] MEDS: Latanoprost 0.005% Ophth Soln 2.5 ML Bottle EYEBOTH SCH (20:54)
[2019-11-18] MEDS: atorvaSTATin 20 MG Tab PO SCH (20:54)
[2019-11-19] MEDS: Dorzolamide 2% Ophth Soln 10 ML Bottle EYEBOTH SCH ×2 (08:54→17:25)
[2019-11-19] MEDS: Brimonidine 0.2% Ophth Soln 5 ML Bottle EYEBOTH SCH ×2 (08:54→17:25)
[2019-11-19] MEDS: Multivitamins with Iron/Calcium/Folic Acid/Minerals Tab PO SCH (08:55)
[2019-11-19] MEDS: Cholecalciferol (Vitamin D3) 25 MCG Tab PO SCH (08:55)
[2019-11-19] MEDS: Calcium Carbonate 500 MG Tablet PO SCH (08:55)
[2019-11-19] MEDS: Aspirin 81 MG Tab.Chew PO SCH (08:55)
[2019-11-19] MEDS: TERIFLUNOMIDE 14 MG PO SCH (08:56)
[2019-11-19] MEDS: Acetaminophen 500 MG Tab PO SCH ×4 (08:56→20:46)
[2019-11-19] MEDS: Citalopram 10 MG Tab PO SCH (08:57)
[2019-11-19] MEDS: DALFAMPRIDINE 10 MG PO SCH ×2 (08:57→20:46)
--- NOTE | 2019-11-19 12:03 | PN ---
DATE SEEN: 11/19/2019 Kaykay Cervantes is a 59-year-old female, long-term rehab care. Doing well. Mood appears to be more stable. She has had no recent radiographs. We will do radiographs of her right lower leg. Medications reviewed and appropriate. No changes in therapy. /[id number] [id number] SLIME/GUERITA
[2019-11-19] MEDS: Latanoprost 0.005% Ophth Soln 2.5 ML Bottle EYEBOTH SCH (20:46)
[2019-11-19] MEDS: atorvaSTATin 20 MG Tab PO SCH (20:46)
[2019-11-20] MEDS: Brimonidine 0.2% Ophth Soln 5 ML Bottle EYEBOTH SCH ×2 (08:31→17:26)
[2019-11-20] MEDS: TERIFLUNOMIDE 14 MG PO SCH (08:32)
[2019-11-20] MEDS: Acetaminophen 500 MG Tab PO SCH ×4 (08:33→21:32)
[2019-11-20] MEDS: Citalopram 10 MG Tab PO SCH (08:33)
[2019-11-20] MEDS: Aspirin 81 MG Tab.Chew PO SCH (08:34)
[2019-11-20] MEDS: DALFAMPRIDINE 10 MG PO SCH ×2 (08:34→21:32)
[2019-11-20] MEDS: Calcium Carbonate 500 MG Tablet PO SCH (08:35)
[2019-11-20] MEDS: Multivitamins with Iron/Calcium/Folic Acid/Minerals Tab PO SCH (08:35)
[2019-11-20] MEDS: Dorzolamide 2% Ophth Soln 10 ML Bottle EYEBOTH SCH ×2 (08:36→17:27)
[2019-11-20] MEDS: Cholecalciferol (Vitamin D3) 25 MCG Tab PO SCH (09:04)
--- NOTE | 2019-11-20 14:12 | PN ---
DATE SEEN: 11/20/2019 SUBJECTIVE: Kaykay Cervantes is a 59-year-old female in long-term care. Had a complicated tib-fib fracture. Had ordered plain x-rays for today, but she is going to be seen in [place] and x- rays performed then, we will defer x-rays till that time. Order will be canceled. Doing pretty well with her pain, sleeping well, comfortable. Medications reviewed timely and appropriate. OBJECTIVE: VITAL SIGNS: Stable. 36.7, 55.9 kg, 87 is the pulse, 132/86, 16 is the respiration, 91. GENERAL: Appears comfortable. Speech was fluent. NECK: Benign. CHEST: Decreased breath sounds, but clear to auscultation. HEART: Distant heart sounds. ABDOMEN: Benign. EXTREMITIES: Surgical site in lower leg intact. ASSESSMENT: Complicated tibia and fibula fracture. PLAN: Continue present therapy. Ortho visit upcoming and planned on Wednesday. /[id number] 1116 SLIME/GUERITA
[2019-11-20] MEDS: atorvaSTATin 20 MG Tab PO SCH (21:32)
[2019-11-20] MEDS: Latanoprost 0.005% Ophth Soln 2.5 ML Bottle EYEBOTH SCH (21:32)
[2019-11-21] MEDS: Brimonidine 0.2% Ophth Soln 5 ML Bottle EYEBOTH SCH ×2 (08:12→17:50)
[2019-11-21] MEDS: Acetaminophen 500 MG Tab PO SCH ×4 (08:13→20:44)
[2019-11-21] MEDS: Aspirin 81 MG Tab.Chew PO SCH (08:14)
[2019-11-21] MEDS: Citalopram 10 MG Tab PO SCH (08:15)
[2019-11-21] MEDS: Calcium Carbonate 500 MG Tablet PO SCH (08:17)
[2019-11-21] MEDS: DALFAMPRIDINE 10 MG PO SCH ×2 (08:18→20:44)
[2019-11-21] MEDS: TERIFLUNOMIDE 14 MG PO SCH (08:19)
[2019-11-21] MEDS: Multivitamins with Iron/Calcium/Folic Acid/Minerals Tab PO SCH (08:20)
[2019-11-21] MEDS: Dorzolamide 2% Ophth Soln 10 ML Bottle EYEBOTH SCH ×2 (08:21→17:51)
[2019-11-21] MEDS: Cholecalciferol (Vitamin D3) 25 MCG Tab PO SCH (08:22)
--- NOTE | 2019-11-21 11:34 | PN ---
DATE SEEN: 11/21/2019 SUBJECTIVE: Kaykay Cervantes is a 59-year-old female, long-term care for complicated right tib-fib fracture. Has upcoming visit with Orthopedics at [facility] in [place], Wednesday, tomorrow. Doing otherwise well. One can of Coke per day. Doing well. Pain is controlled by report. OBJECTIVE: Incision looks well. No complicating issue. PLAN: We will continue conservative PT therapy. /[id number] /GUERITA
[2019-11-21] MEDS: atorvaSTATin 20 MG Tab PO SCH (20:44)
[2019-11-21] MEDS: Latanoprost 0.005% Ophth Soln 2.5 ML Bottle EYEBOTH SCH (20:44)
[2019-11-22] MEDS: Brimonidine 0.2% Ophth Soln 5 ML Bottle EYEBOTH SCH ×2 (08:24→17:35)
[2019-11-22] MEDS: Aspirin 81 MG Tab.Chew PO SCH (08:32)
[2019-11-22] MEDS: DALFAMPRIDINE 10 MG PO SCH ×2 (08:33→21:57)
[2019-11-22] MEDS: Citalopram 10 MG Tab PO SCH (08:33)
[2019-11-22] MEDS: Acetaminophen 500 MG Tab PO SCH ×4 (08:34→21:57)
[2019-11-22] MEDS: Multivitamins with Iron/Calcium/Folic Acid/Minerals Tab PO SCH (08:34)
[2019-11-22] MEDS: Calcium Carbonate 500 MG Tablet PO SCH (08:34)
[2019-11-22] MEDS: Cholecalciferol (Vitamin D3) 25 MCG Tab PO SCH (08:35)
[2019-11-22] MEDS: TERIFLUNOMIDE 14 MG PO SCH (08:38)
[2019-11-22] MEDS: Dorzolamide 2% Ophth Soln 10 ML Bottle EYEBOTH SCH ×2 (08:38→17:36)
--- NOTE | 2019-11-22 11:37 | PN ---
DATE SEEN: 11/22/2019 SUBJECTIVE: Kaykay Cervantes is a young lady, 51 years of age, seen here with complicated right lower extremity tib-fib fracture. Has upcoming visit in [facility] today. Radiographs will be performed there. Travel and plans are in place. Voices no particular complaints or concerns. OBJECTIVE: VITAL SIGNS: 36.7, 84, 126/78, 16, 93%. GENERAL: Appears comfortable. Speech was fluent. Moves all extremities well except the right leg, brace in place. CHEST: Clear in all lung coats. HEART: No ectopy or murmur. ABDOMEN: Benign. ASSESSMENT: Tib-fib fracture, complicated right lower extremity. PLAN: Nonweightbearing at present. We will get some orders from Ortho upcoming and planned visit today. /[id number] 1126 /GUERITA
[2019-11-22] MEDS: atorvaSTATin 20 MG Tab PO SCH (21:57)
[2019-11-22] MEDS: Latanoprost 0.005% Ophth Soln 2.5 ML Bottle EYEBOTH SCH (21:58)
[2019-11-23] MEDS: Brimonidine 0.2% Ophth Soln 5 ML Bottle EYEBOTH SCH ×2 (08:57→19:01)
[2019-11-23] MEDS: Citalopram 10 MG Tab PO SCH (08:58)
[2019-11-23] MEDS: Aspirin 81 MG Tab.Chew PO SCH (08:58)
[2019-11-23] MEDS: DALFAMPRIDINE 10 MG PO SCH ×2 (08:59→20:55)
[2019-11-23] MEDS ORDERED: Calcium Carbonate 500 MG Tablet PO SCH (09:00)
[2019-11-23] MEDS: Calcium Carbonate 500 MG Tablet PO SCH ×3 (09:00→20:56)
[2019-11-23] MEDS: Multivitamins with Iron/Calcium/Folic Acid/Minerals Tab PO SCH (09:01)
[2019-11-23] MEDS: Dorzolamide 2% Ophth Soln 10 ML Bottle EYEBOTH SCH ×2 (09:01→19:02)
[2019-11-23] MEDS: Acetaminophen 500 MG Tab PO SCH ×4 (09:02→20:56)
[2019-11-23] MEDS: TERIFLUNOMIDE 14 MG PO SCH (09:04)
[2019-11-23] MEDS: Cholecalciferol (Vitamin D3) 25 MCG Tab PO SCH (09:07)
--- NOTE | 2019-11-23 11:38 | PN ---
DATE SEEN: 11/23/2019 SUBJECTIVE: Kaykay Cervantes is a 59-year-old female, long-term patient. Has a distal right tib-fib fracture. Seen by Ortho at [facility], discharged home on toe-touch weightbearing, hinged brace, gentle range of motion of the knee, addition of 1500 calcium and 8000 vitamin D3. Pain appears to be controlled. OBJECTIVE: GENERAL: Appears comfortable. NECK: Benign. Thyroid small. CHEST: Clear. HEART: Regular. ABDOMEN: Benign. LOWER EXTREMITY: Right lower extremity wound healing well. ASSESSMENT: Complicated tib-fib fracture of right lower extremity. PLAN: Ortho care and recommendations on board. /[id number] /GUERITA
[2019-11-23] MEDS: Latanoprost 0.005% Ophth Soln 2.5 ML Bottle EYEBOTH SCH (20:57)
[2019-11-23] MEDS: atorvaSTATin 20 MG Tab PO SCH (20:58)
[2019-11-24] MEDS: Brimonidine 0.2% Ophth Soln 5 ML Bottle EYEBOTH SCH ×2 (08:55→17:32)
[2019-11-24] MEDS: Citalopram 10 MG Tab PO SCH (08:56)
[2019-11-24] MEDS: DALFAMPRIDINE 10 MG PO SCH ×2 (08:56→20:21)
[2019-11-24] MEDS: Aspirin 81 MG Tab.Chew PO SCH (08:56)
[2019-11-24] MEDS: Multivitamins with Iron/Calcium/Folic Acid/Minerals Tab PO SCH (08:57)
[2019-11-24] MEDS: Acetaminophen 500 MG Tab PO SCH ×4 (08:57→20:21)
[2019-11-24] MEDS: TERIFLUNOMIDE 14 MG PO SCH (08:59)
[2019-11-24] MEDS: Dorzolamide 2% Ophth Soln 10 ML Bottle EYEBOTH SCH ×2 (09:04→17:33)
[2019-11-24] MEDS: Calcium Carbonate 500 MG Tablet PO SCH ×3 (09:05→20:21)
[2019-11-24] MEDS: Cholecalciferol (Vitamin D3) 25 MCG Tab PO SCH (09:11)
[2019-11-24] MEDS: Latanoprost 0.005% Ophth Soln 2.5 ML Bottle EYEBOTH SCH (20:21)
[2019-11-24] MEDS: atorvaSTATin 20 MG Tab PO SCH (20:21)
[2019-11-25] MEDS: traMADol 50 MG Tab PO PRN ×2 (02:09→15:59)
[2019-11-25] MEDS: Aspirin 81 MG Tab.Chew PO SCH (08:30)
[2019-11-25] MEDS: Citalopram 10 MG Tab PO SCH (08:30)
[2019-11-25] MEDS: TERIFLUNOMIDE 14 MG PO SCH (08:31)
[2019-11-25] MEDS: Calcium Carbonate 500 MG Tablet PO SCH ×3 (08:32→21:40)
[2019-11-25] MEDS: Multivitamins with Iron/Calcium/Folic Acid/Minerals Tab PO SCH (08:32)
[2019-11-25] MEDS: Dorzolamide 2% Ophth Soln 10 ML Bottle EYEBOTH SCH ×2 (08:33→18:06)
[2019-11-25] MEDS: Acetaminophen 500 MG Tab PO SCH ×4 (08:33→21:40)
[2019-11-25] MEDS: Cholecalciferol (Vitamin D3) 25 MCG Tab PO SCH (08:33)
[2019-11-25] MEDS: Brimonidine 0.2% Ophth Soln 5 ML Bottle EYEBOTH SCH ×2 (08:34→18:05)
[2019-11-25] MEDS: DALFAMPRIDINE 10 MG PO SCH ×2 (08:35→21:40)
[2019-11-25] MEDS: atorvaSTATin 20 MG Tab PO SCH (21:40)
[2019-11-25] MEDS: Latanoprost 0.005% Ophth Soln 2.5 ML Bottle EYEBOTH SCH (21:41)
[2019-11-26] MEDS: Aspirin 81 MG Tab.Chew PO SCH (09:06)
[2019-11-26] MEDS: Dorzolamide 2% Ophth Soln 10 ML Bottle EYEBOTH SCH ×2 (09:06→17:02)
[2019-11-26] MEDS: Brimonidine 0.2% Ophth Soln 5 ML Bottle EYEBOTH SCH ×2 (09:06→17:02)
[2019-11-26] MEDS: Calcium Carbonate 500 MG Tablet PO SCH ×3 (09:07→21:13)
[2019-11-26] MEDS: Acetaminophen 500 MG Tab PO SCH ×4 (09:07→21:13)
[2019-11-26] MEDS: Cholecalciferol (Vitamin D3) 25 MCG Tab PO SCH (09:07)
[2019-11-26] MEDS: Citalopram 10 MG Tab PO SCH (09:07)
[2019-11-26] MEDS: Multivitamins with Iron/Calcium/Folic Acid/Minerals Tab PO SCH (09:07)
[2019-11-26] MEDS: DALFAMPRIDINE 10 MG PO SCH ×2 (09:07→21:13)
[2019-11-26] MEDS: TERIFLUNOMIDE 14 MG PO SCH (09:08)
[2019-11-26] MEDS: traMADol 50 MG Tab PO PRN (10:22)
[2019-11-26] MEDS: Latanoprost 0.005% Ophth Soln 2.5 ML Bottle EYEBOTH SCH (21:13)
[2019-11-26] MEDS: atorvaSTATin 20 MG Tab PO SCH (21:13)
[2019-11-27] MEDS: Multivitamins with Iron/Calcium/Folic Acid/Minerals Tab PO SCH (08:28)
[2019-11-27] MEDS: Aspirin 81 MG Tab.Chew PO SCH (08:29)
[2019-11-27] MEDS: Calcium Carbonate 500 MG Tablet PO SCH ×3 (08:29→21:10)
[2019-11-27] MEDS: Citalopram 10 MG Tab PO SCH (08:30)
[2019-11-27] MEDS: DALFAMPRIDINE 10 MG PO SCH ×2 (08:30→21:09)
[2019-11-27] MEDS: TERIFLUNOMIDE 14 MG PO SCH (08:31)
[2019-11-27] MEDS: Acetaminophen 500 MG Tab PO SCH ×4 (08:31→21:10)
[2019-11-27] MEDS: Cholecalciferol (Vitamin D3) 25 MCG Tab PO SCH (08:32)
[2019-11-27] MEDS: Brimonidine 0.2% Ophth Soln 5 ML Bottle EYEBOTH SCH ×2 (08:35→17:24)
[2019-11-27] MEDS: Dorzolamide 2% Ophth Soln 10 ML Bottle EYEBOTH SCH ×2 (08:35→17:24)
--- NOTE | 2019-11-27 11:58 | CR ---
INDICATION: Pain outside of left foot. LEFT FOOT: Three views of the left foot were obtained and revealed an appearance of demineralization compatible with osteomalacia or osteoporosis - correlate clinically. What appears to be a healing fracture site is noted at the distal metaphysis of the 5th metatarsal. This could be on the basis of a subacute fracture site and should be correlated clinically. There is some minimal degenerative change in the left foot at multiple sites with no other acute bone or joint abnormality identified. IMPRESSION: 1. Suggestion of a healing fracture site at the distal metaphysis of the 5th metatarsal. This could also be the site of a reinjured previous fracture - correlate clinically. 2. Demineralization, which may be on the basis of osteomalacia or osteoporosis - correlate clinically. Report was called to Dr. Gonzalez at 11:34 hours. [facility]
[2019-11-27] MEDS: Latanoprost 0.005% Ophth Soln 2.5 ML Bottle EYEBOTH SCH (21:10)
[2019-11-27] MEDS: atorvaSTATin 20 MG Tab PO SCH (21:10)
[2019-11-28] MEDS: Brimonidine 0.2% Ophth Soln 5 ML Bottle EYEBOTH SCH ×2 (08:17→17:22)
[2019-11-28] MEDS: Dorzolamide 2% Ophth Soln 10 ML Bottle EYEBOTH SCH ×2 (08:20→17:23)
[2019-11-28] MEDS: Calcium Carbonate 500 MG Tablet PO SCH ×3 (08:21→21:43)
[2019-11-28] MEDS: Multivitamins with Iron/Calcium/Folic Acid/Minerals Tab PO SCH (08:21)
[2019-11-28] MEDS: Aspirin 81 MG Tab.Chew PO SCH (08:24)
[2019-11-28] MEDS: Citalopram 10 MG Tab PO SCH (08:24)
[2019-11-28] MEDS: DALFAMPRIDINE 10 MG PO SCH ×2 (08:25→21:42)
[2019-11-28] MEDS: Acetaminophen 500 MG Tab PO SCH ×4 (08:25→21:43)
[2019-11-28] MEDS: Cholecalciferol (Vitamin D3) 25 MCG Tab PO SCH (08:26)
[2019-11-28] MEDS: TERIFLUNOMIDE 14 MG PO SCH (08:28)
[2019-11-28] MEDS: atorvaSTATin 20 MG Tab PO SCH (21:42)
[2019-11-28] MEDS: Latanoprost 0.005% Ophth Soln 2.5 ML Bottle EYEBOTH SCH (21:44)
[2019-11-29] MEDS: Aspirin 81 MG Tab.Chew PO SCH (09:27)
[2019-11-29] MEDS: DALFAMPRIDINE 10 MG PO SCH ×2 (09:27→20:47)
[2019-11-29] MEDS: Calcium Carbonate 500 MG Tablet PO SCH ×3 (09:27→20:46)
[2019-11-29] MEDS: Citalopram 10 MG Tab PO SCH (09:27)
[2019-11-29] MEDS: Dorzolamide 2% Ophth Soln 10 ML Bottle EYEBOTH SCH ×2 (09:28→17:32)
[2019-11-29] MEDS: Acetaminophen 500 MG Tab PO SCH ×4 (09:28→20:47)
[2019-11-29] MEDS: Brimonidine 0.2% Ophth Soln 5 ML Bottle EYEBOTH SCH ×2 (09:28→17:32)
[2019-11-29] MEDS: Cholecalciferol (Vitamin D3) 25 MCG Tab PO SCH (09:28)
[2019-11-29] MEDS: TERIFLUNOMIDE 14 MG PO SCH (09:28)
[2019-11-29] MEDS: Multivitamins with Iron/Calcium/Folic Acid/Minerals Tab PO SCH (09:29)
[2019-11-29] MEDS: Latanoprost 0.005% Ophth Soln 2.5 ML Bottle EYEBOTH SCH (20:44)
[2019-11-29] MEDS: atorvaSTATin 20 MG Tab PO SCH (20:46)
[2019-11-30] MEDS: Aspirin 81 MG Tab.Chew PO SCH (08:13)
[2019-11-30] MEDS: Brimonidine 0.2% Ophth Soln 5 ML Bottle EYEBOTH SCH ×2 (08:13→17:26)
[2019-11-30] MEDS: DALFAMPRIDINE 10 MG PO SCH ×2 (08:14→20:43)
[2019-11-30] MEDS: Citalopram 10 MG Tab PO SCH (08:14)
[2019-11-30] MEDS: Calcium Carbonate 500 MG Tablet PO SCH ×3 (08:14→20:43)
[2019-11-30] MEDS: Cholecalciferol (Vitamin D3) 25 MCG Tab PO SCH (08:14)
[2019-11-30] MEDS: TERIFLUNOMIDE 14 MG PO SCH (08:15)
[2019-11-30] MEDS: Acetaminophen 500 MG Tab PO SCH ×4 (08:15→20:43)
[2019-11-30] MEDS: Dorzolamide 2% Ophth Soln 10 ML Bottle EYEBOTH SCH ×2 (08:15→17:26)
[2019-11-30] MEDS: Multivitamins with Iron/Calcium/Folic Acid/Minerals Tab PO SCH (08:15)
[2019-11-30] MEDS: atorvaSTATin 20 MG Tab PO SCH (20:43)
[2019-11-30] MEDS: Latanoprost 0.005% Ophth Soln 2.5 ML Bottle EYEBOTH SCH (20:43)
[2019-12-01] MEDS: TERIFLUNOMIDE 14 MG PO SCH (08:32)
[2019-12-01] MEDS: Citalopram 10 MG Tab PO SCH (08:33)
[2019-12-01] MEDS: Multivitamins with Iron/Calcium/Folic Acid/Minerals Tab PO SCH (08:34)
[2019-12-01] MEDS: Brimonidine 0.2% Ophth Soln 5 ML Bottle EYEBOTH SCH ×2 (08:34→17:44)
[2019-12-01] MEDS: Calcium Carbonate 500 MG Tablet PO SCH ×3 (08:34→21:26)
[2019-12-01] MEDS: Aspirin 81 MG Tab.Chew PO SCH (08:34)
[2019-12-01] MEDS: Dorzolamide 2% Ophth Soln 10 ML Bottle EYEBOTH SCH ×2 (08:35→17:43)
[2019-12-01] MEDS: Acetaminophen 500 MG Tab PO SCH ×4 (08:35→21:26)
[2019-12-01] MEDS: Cholecalciferol (Vitamin D3) 25 MCG Tab PO SCH (08:35)
[2019-12-01] MEDS: DALFAMPRIDINE 10 MG PO SCH ×2 (08:36→21:26)
[2019-12-01] MEDS: Latanoprost 0.005% Ophth Soln 2.5 ML Bottle EYEBOTH SCH (21:26)
[2019-12-01] MEDS: atorvaSTATin 20 MG Tab PO SCH (21:26)
[2019-12-02] MEDS: Brimonidine 0.2% Ophth Soln 5 ML Bottle EYEBOTH SCH ×2 (08:08→17:28)
[2019-12-02] MEDS: TERIFLUNOMIDE 14 MG PO SCH (08:09)
[2019-12-02] MEDS: Dorzolamide 2% Ophth Soln 10 ML Bottle EYEBOTH SCH ×2 (08:09→17:28)
[2019-12-02] MEDS: Aspirin 81 MG Tab.Chew PO SCH (08:10)
[2019-12-02] MEDS: Calcium Carbonate 500 MG Tablet PO SCH ×3 (08:10→20:55)
[2019-12-02] MEDS: Cholecalciferol (Vitamin D3) 25 MCG Tab PO SCH (08:10)
[2019-12-02] MEDS: Citalopram 10 MG Tab PO SCH (08:10)
[2019-12-02] MEDS: DALFAMPRIDINE 10 MG PO SCH ×2 (08:10→20:55)
[2019-12-02] MEDS: Multivitamins with Iron/Calcium/Folic Acid/Minerals Tab PO SCH (08:10)
[2019-12-02] MEDS: Acetaminophen 500 MG Tab PO SCH ×4 (08:11→20:55)
[2019-12-02] MEDS: Latanoprost 0.005% Ophth Soln 2.5 ML Bottle EYEBOTH SCH (20:55)
[2019-12-02] MEDS: atorvaSTATin 20 MG Tab PO SCH (20:55)
[2019-12-03] MEDS: Brimonidine 0.2% Ophth Soln 5 ML Bottle EYEBOTH SCH ×2 (09:20→17:47)
[2019-12-03] MEDS: Dorzolamide 2% Ophth Soln 10 ML Bottle EYEBOTH SCH ×2 (09:21→17:48)
[2019-12-03] MEDS: Multivitamins with Iron/Calcium/Folic Acid/Minerals Tab PO SCH (09:21)
[2019-12-03] MEDS: Cholecalciferol (Vitamin D3) 25 MCG Tab PO SCH (09:22)
[2019-12-03] MEDS: Calcium Carbonate 500 MG Tablet PO SCH ×3 (09:22→20:48)
[2019-12-03] MEDS: Acetaminophen 500 MG Tab PO SCH ×4 (09:24→20:48)
[2019-12-03] MEDS: Aspirin 81 MG Tab.Chew PO SCH (09:24)
[2019-12-03] MEDS: Citalopram 10 MG Tab PO SCH (09:25)
[2019-12-03] MEDS: DALFAMPRIDINE 10 MG PO SCH ×2 (09:26→20:47)
[2019-12-03] MEDS: TERIFLUNOMIDE 14 MG PO SCH (09:27)
[2019-12-03] MEDS: atorvaSTATin 20 MG Tab PO SCH (20:47)
[2019-12-03] MEDS: Latanoprost 0.005% Ophth Soln 2.5 ML Bottle EYEBOTH SCH (20:48)
[2019-12-04] MEDS: Brimonidine 0.2% Ophth Soln 5 ML Bottle EYEBOTH SCH ×2 (08:21→17:45)
[2019-12-04] MEDS: Citalopram 10 MG Tab PO SCH (08:22)
[2019-12-04] MEDS: Aspirin 81 MG Tab.Chew PO SCH (08:22)
[2019-12-04] MEDS: Calcium Carbonate 500 MG Tablet PO SCH ×3 (08:23→21:10)
[2019-12-04] MEDS: DALFAMPRIDINE 10 MG PO SCH ×2 (08:23→21:09)
[2019-12-04] MEDS: Acetaminophen 500 MG Tab PO SCH ×4 (08:24→21:11)
[2019-12-04] MEDS: Multivitamins with Iron/Calcium/Folic Acid/Minerals Tab PO SCH (08:24)
[2019-12-04] MEDS: TERIFLUNOMIDE 14 MG PO SCH (08:24)
[2019-12-04] MEDS: Dorzolamide 2% Ophth Soln 10 ML Bottle EYEBOTH SCH ×2 (08:24→17:42)
[2019-12-04] MEDS: Cholecalciferol (Vitamin D3) 25 MCG Tab PO SCH (08:25)
[2019-12-04] MEDS: Sodium Chloride 0.9% 10 ML Syringe FLUSH PRN (11:30)
--- NOTE | 2019-12-04 12:06 | PCM.SN.2 ---
- Free Text/Narrative Note: 1159am called to see pt on swing bed S: Nurse noted pt to be in SVT at about 1130 am HR of 180's , pt having palpitations and seemed pale States she has had same in the past last episode was about 1 month ago while in hospital here At home would do Vlalsalva and resolves sponteneously In hospital had to be given Adenosine Objective: BP decreased to 89/57 Gen: Pal alert in no distress Resp: Clear aeration bilaterally CVS: HS S1 S2 RRR, tachycardic about 180 Abd: soft EXT: Right leg in immobilizer Plan: EKG , IVF , Adenosine FU: EKG done and did confirm SVT at about 180's HR IVF started: Nacl Oxygen given 2liters via NC As pt was being prepared to get Adenosine she spontaneously converted Repeat EKG done Patient felt better Will complete bolus liter of fluid
[2019-12-04] MEDS ORDERED: Sodium Chloride 0.9% 1,000 ML IV SCH (12:15)
[2019-12-04] MEDS: atorvaSTATin 20 MG Tab PO SCH (21:10)
[2019-12-04] MEDS: Latanoprost 0.005% Ophth Soln 2.5 ML Bottle EYEBOTH SCH (21:12)
[2019-12-05] MEDS: Citalopram 10 MG Tab PO SCH (08:22)
[2019-12-05] MEDS: Aspirin 81 MG Tab.Chew PO SCH (08:22)
[2019-12-05] MEDS: Brimonidine 0.2% Ophth Soln 5 ML Bottle EYEBOTH SCH ×2 (08:22→17:10)
[2019-12-05] MEDS: Dorzolamide 2% Ophth Soln 10 ML Bottle EYEBOTH SCH ×2 (08:22→17:11)
[2019-12-05] MEDS: TERIFLUNOMIDE 14 MG PO SCH (08:23)
[2019-12-05] MEDS: Multivitamins with Iron/Calcium/Folic Acid/Minerals Tab PO SCH (08:24)
[2019-12-05] MEDS: Calcium Carbonate 500 MG Tablet PO SCH ×3 (08:24→20:02)
[2019-12-05] MEDS: DALFAMPRIDINE 10 MG PO SCH ×2 (08:24→20:01)
[2019-12-05] MEDS: Cholecalciferol (Vitamin D3) 25 MCG Tab PO SCH (08:24)
[2019-12-05] MEDS: Acetaminophen 500 MG Tab PO SCH ×4 (08:24→20:02)
[2019-12-05] MEDS: atorvaSTATin 20 MG Tab PO SCH (20:02)
[2019-12-05] MEDS: Latanoprost 0.005% Ophth Soln 2.5 ML Bottle EYEBOTH SCH (20:04)
[2019-12-06] MEDS: Dorzolamide 2% Ophth Soln 10 ML Bottle EYEBOTH SCH ×2 (08:21→18:26)
[2019-12-06] MEDS: Aspirin 81 MG Tab.Chew PO SCH (08:22)
[2019-12-06] MEDS: Brimonidine 0.2% Ophth Soln 5 ML Bottle EYEBOTH SCH ×2 (08:22→18:26)
[2019-12-06] MEDS: DALFAMPRIDINE 10 MG PO SCH ×2 (08:25→20:56)
[2019-12-06] MEDS: Calcium Carbonate 500 MG Tablet PO SCH ×3 (08:26→20:58)
[2019-12-06] MEDS: TERIFLUNOMIDE 14 MG PO SCH (08:27)
[2019-12-06] MEDS: Acetaminophen 500 MG Tab PO SCH ×4 (08:28→20:58)
[2019-12-06] MEDS: Multivitamins with Iron/Calcium/Folic Acid/Minerals Tab PO SCH (08:28)
[2019-12-06] MEDS: Cholecalciferol (Vitamin D3) 25 MCG Tab PO SCH (08:29)
[2019-12-06] MEDS: Citalopram 10 MG Tab PO SCH (08:31)
[2019-12-06] MEDS: atorvaSTATin 20 MG Tab PO SCH (20:57)
[2019-12-06] MEDS: Latanoprost 0.005% Ophth Soln 2.5 ML Bottle EYEBOTH SCH (20:59)
[2019-12-07] MEDS: Acetaminophen 500 MG Tab PO SCH ×4 (08:33→21:06)
[2019-12-07] MEDS: DALFAMPRIDINE 10 MG PO SCH ×2 (08:33→21:06)
[2019-12-07] MEDS: Calcium Carbonate 500 MG Tablet PO SCH ×3 (08:33→21:06)
[2019-12-07] MEDS: Cholecalciferol (Vitamin D3) 25 MCG Tab PO SCH (08:33)
[2019-12-07] MEDS: Multivitamins with Iron/Calcium/Folic Acid/Minerals Tab PO SCH (08:33)
[2019-12-07] MEDS: Aspirin 81 MG Tab.Chew PO SCH (08:33)
[2019-12-07] MEDS: Citalopram 10 MG Tab PO SCH (08:33)
[2019-12-07] MEDS: TERIFLUNOMIDE 14 MG PO SCH (08:34)
[2019-12-07] MEDS: Dorzolamide 2% Ophth Soln 10 ML Bottle EYEBOTH SCH ×2 (08:34→17:35)
[2019-12-07] MEDS: Brimonidine 0.2% Ophth Soln 5 ML Bottle EYEBOTH SCH ×2 (08:34→17:35)
[2019-12-07] MEDS: atorvaSTATin 20 MG Tab PO SCH (21:06)
[2019-12-07] MEDS: Latanoprost 0.005% Ophth Soln 2.5 ML Bottle EYEBOTH SCH (21:07)
[2019-12-08] MEDS: Citalopram 10 MG Tab PO SCH (09:10)
[2019-12-08] MEDS: Multivitamins with Iron/Calcium/Folic Acid/Minerals Tab PO SCH (09:11)
[2019-12-08] MEDS: Cholecalciferol (Vitamin D3) 25 MCG Tab PO SCH (09:11)
[2019-12-08] MEDS: Acetaminophen 500 MG Tab PO SCH ×4 (09:11→20:45)
[2019-12-08] MEDS: Aspirin 81 MG Tab.Chew PO SCH (09:13)
[2019-12-08] MEDS: DALFAMPRIDINE 10 MG PO SCH ×2 (09:13→20:45)
[2019-12-08] MEDS: TERIFLUNOMIDE 14 MG PO SCH (09:14)
[2019-12-08] MEDS: Calcium Carbonate 500 MG Tablet PO SCH ×3 (09:14→20:45)
[2019-12-08] MEDS: Dorzolamide 2% Ophth Soln 10 ML Bottle EYEBOTH SCH ×2 (09:15→17:34)
[2019-12-08] MEDS: Brimonidine 0.2% Ophth Soln 5 ML Bottle EYEBOTH SCH ×2 (09:16→17:35)
[2019-12-08] MEDS: atorvaSTATin 20 MG Tab PO SCH (20:45)
[2019-12-08] MEDS: Latanoprost 0.005% Ophth Soln 2.5 ML Bottle EYEBOTH SCH (20:46)
[2019-12-09] MEDS: Cholecalciferol (Vitamin D3) 25 MCG Tab PO SCH (08:56)
[2019-12-09] MEDS: Multivitamins with Iron/Calcium/Folic Acid/Minerals Tab PO SCH (08:57)
[2019-12-09] MEDS: Aspirin 81 MG Tab.Chew PO SCH (08:57)
[2019-12-09] MEDS: Calcium Carbonate 500 MG Tablet PO SCH ×3 (08:57→21:00)
[2019-12-09] MEDS: DALFAMPRIDINE 10 MG PO SCH ×2 (08:57→21:00)
[2019-12-09] MEDS: Citalopram 10 MG Tab PO SCH (08:57)
[2019-12-09] MEDS: Acetaminophen 500 MG Tab PO SCH ×4 (08:58→21:00)
[2019-12-09] MEDS: TERIFLUNOMIDE 14 MG PO SCH (08:58)
[2019-12-09] MEDS: Dorzolamide 2% Ophth Soln 10 ML Bottle EYEBOTH SCH ×2 (08:59→17:51)
[2019-12-09] MEDS: Brimonidine 0.2% Ophth Soln 5 ML Bottle EYEBOTH SCH ×2 (08:59→17:53)
[2019-12-09] MEDS: atorvaSTATin 20 MG Tab PO SCH (21:00)
[2019-12-09] MEDS: Latanoprost 0.005% Ophth Soln 2.5 ML Bottle EYEBOTH SCH (21:01)
[2019-12-10] MEDS: Calcium Carbonate 500 MG Tablet PO SCH ×3 (08:53→21:35)
[2019-12-10] MEDS: Multivitamins with Iron/Calcium/Folic Acid/Minerals Tab PO SCH (08:54)
[2019-12-10] MEDS: Aspirin 81 MG Tab.Chew PO SCH (08:54)
[2019-12-10] MEDS: DALFAMPRIDINE 10 MG PO SCH ×2 (08:54→21:35)
[2019-12-10] MEDS: Citalopram 10 MG Tab PO SCH (08:54)
[2019-12-10] MEDS: Acetaminophen 500 MG Tab PO SCH ×4 (08:55→21:35)
[2019-12-10] MEDS: Cholecalciferol (Vitamin D3) 25 MCG Tab PO SCH (08:55)
[2019-12-10] MEDS: TERIFLUNOMIDE 14 MG PO SCH (08:56)
[2019-12-10] MEDS: Dorzolamide 2% Ophth Soln 10 ML Bottle EYEBOTH SCH ×2 (08:57→17:33)
[2019-12-10] MEDS: Brimonidine 0.2% Ophth Soln 5 ML Bottle EYEBOTH SCH ×2 (08:57→17:33)
[2019-12-10] MEDS: Latanoprost 0.005% Ophth Soln 2.5 ML Bottle EYEBOTH SCH (21:35)
[2019-12-10] MEDS: atorvaSTATin 20 MG Tab PO SCH (21:35)
[2019-12-11] MEDS: Dorzolamide 2% Ophth Soln 10 ML Bottle EYEBOTH SCH ×2 (08:29→18:39)
[2019-12-11] MEDS: Aspirin 81 MG Tab.Chew PO SCH (08:30)
[2019-12-11] MEDS: Citalopram 10 MG Tab PO SCH (08:31)
[2019-12-11] MEDS: DALFAMPRIDINE 10 MG PO SCH ×2 (08:32→21:50)
[2019-12-11] MEDS: Calcium Carbonate 500 MG Tablet PO SCH ×3 (08:33→21:49)
[2019-12-11] MEDS: TERIFLUNOMIDE 14 MG PO SCH (08:34)
[2019-12-11] MEDS: Cholecalciferol (Vitamin D3) 25 MCG Tab PO SCH (08:35)
[2019-12-11] MEDS: Multivitamins with Iron/Calcium/Folic Acid/Minerals Tab PO SCH (08:35)
[2019-12-11] MEDS: Acetaminophen 500 MG Tab PO SCH ×4 (08:35→21:50)
[2019-12-11] MEDS: Brimonidine 0.2% Ophth Soln 5 ML Bottle EYEBOTH SCH ×2 (08:36→18:39)
--- NOTE | 2019-12-11 16:40 | PCM.PN ---
- General Info Date of Service: 12/11/19 Admission Dx/Problem (Free Text): Cherrie is doing well, her mood is better since we increased her Citalopram 30 mg daily in October, has some anxiety with transfers but they only last a few minutes she so had not had to use her Hydroxyzine as needed. Her bowel movements are unchanged, has some incontinence secondary to her MS. She is maintaining her weight. 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 - Patient Data Vitals - Most Recent: Last Vital Signs Temp 98.0 F 12/11/19 07:39 Pulse 80 12/11/19 07:39 Resp 16 12/11/19 07:39 BP 128/84 12/11/19 07:39 Pulse Ox 92 L 12/11/19 07:39 Weight - Most Recent: 124 lb 14.4 oz Med Orders - Current: Current Medications Acetaminophen (Tylenol Extra Strength) 500 mg PO QID [facility] Last Admin: 12/11/19 13:54 Dose: 500 mg Documented by: Acetaminophen (Tylenol Extra Strength) 500 mg PO Q6H PRN PRN Reason: Pain (mild 1-3) Last Admin: 11/15/19 06:57 Dose: 500 mg Documented by: Artificial Tears (Genteal Mild To Moderate Ophth Soln) 0 ml EYEBOTH ASDIRECTED PRN PRN Reason: DRY EYES Aspirin (Aspirin) 81 mg PO DAILY [facility] Last Admin: 12/11/19 08:30 Dose: 81 mg Documented by: Atorvastatin Calcium (Lipitor) 20 mg PO BEDTIME [facility] Last Admin: 12/10/19 21:35 Dose: 20 mg Documented by: Brimonidine Tartrate (Alphagan 0.2% Ophth Soln) 0 ml EYEBOTH BID@0900,1800 [facility] Last Admin: 12/11/19 08:36 Dose: 1 drop Documented by: Calcium Carbonate/Glycine (Oyster Shell Calcium) 500 mg PO TID [facility] Last Admin: 12/11/19 13:54 Dose: 500 mg Documented by: Cetirizine HCl (Zyrtec) 10 mg PO DAILY PRN PRN Reason: Allergies Cholecalciferol (Vitamin D3) 125 mcg PO DAILY [facility] Last Admin: 12/11/19 08:35 Dose: 125 mcg Documented by: Citalopram Hydrobromide (Celexa) 30 mg PO DAILY [facility] Last Admin: 12/11/19 08:31 Dose: 30 mg Documented by: Dalfampridine (Dalfampridine Er) 10 mg PO BID [facility] Last Admin: 12/11/19 08:32 Dose: 10 mg Documented by: Dorzolamide HCl (Trusopt 2% Ophth Soln) 0 ml EYEBOTH BID@0900,1800 [facility] Last Admin: 12/11/19 08:29 Dose: 1 drop Documented by: Hydroxyzine HCl (Atarax) 25 mg PO TID PRN PRN Reason: ANXIETY Latanoprost (Xalatan 0.005% Ophth Soln) 0 ml EYEBOTH BEDTIME [facility] Last Admin: 12/10/19 21:35 Dose: 1 drop Documented by: Lutein (Lutein) 20 mg PO DAILY [facility] Last Admin: 12/11/19 08:32 Dose: 20 mg Documented by: Multivitamins/Minerals (Thera M Plus) 1 tab PO DAILY [facility] Last Admin: 12/11/19 08:35 Dose: 1 tab Documented by: (Teriflunomide [ Aubagio] 14 Mg) * Ptom 14 mg PO DAILY [facility] Last Admin: 12/11/19 08:34 Dose: 14 mg Documented by: Sodium Chloride (Saline Flush) 10 ml FLUSH ASDIRECTED PRN PRN Reason: Keep Vein Open Last Admin: 12/04/19 11:30 Dose: 10 ml Documented by: Tramadol HCl (Ultram) 50 mg PO Q4H PRN PRN Reason: LEG PAIN Last Admin: 11/26/19 10:22 Dose: 50 mg Documented by: Discontinued Medications Acetaminophen (Tylenol Extra Strength) 1,000 mg PO TID [facility] Last Admin: 10/13/19 09:26 Dose: Not Given Documented by: Acetaminophen (Tylenol Extra Strength) 500 mg PO Q4H [facility] Last Admin: 10/25/19 11:32 Dose: Not Given Documented by: Acetaminophen (Tylenol Extra Strength) 1,000 mg PO TID [facility] Last Admin: 10/26/19 08:38 Dose: 1,000 mg Documented by: Hydrocodone Bitart/Acetaminophen ([place] 325-5 Mg) 1 tab PO Q6H PRN PRN Reason: Pain Last Admin: 10/12/19 05:12 Dose: 1 tab Documented by: Adenosine (Adenocard) 6 mg IVPUSH NOW ONE Stop: 10/12/19 08:50 Last Admin: 10/12/19 08:25 Dose: 6 mg Documented by: Adenosine (Adenocard) 6 mg IVPUSH NOW ONE Stop: 10/14/19 18:56 Last Admin: 10/14/19 19:40 Dose: 6 mg Documented by: Apixaban (Eliquis) 2.5 mg PO BID [facility] Stop: 11/09/19 09:01 Last Admin: 11/09/19 09:05 Dose: 2.5 mg Documented by: Calcium Carbonate/Glycine (Oyster Shell Calcium) 500 mg PO DAILY [facility] Last Admin: 11/22/19 08:34 Dose: 500 mg Documented by: Calcium Carbonate/Glycine (Oyster Shell Calcium) 1,500 mg PO DAILY [facility] Cholecalciferol (Vitamin D3) 25 mcg PO DAILY [facility] Last Admin: 11/22/19 08:35 Dose: 25 mcg Documented by: Citalopram Hydrobromide (Celexa) 10 mg PO DAILY [facility] Last Admin: 10/19/19 08:24 Dose: 10 mg Documented by: Citalopram Hydrobromide (Celexa) 20 mg PO DAILY [facility] Last Admin: 11/08/19 09:29 Dose: 20 mg Documented by: Diltiazem HCl (Cardizem Cd) 120 mg PO DAILY [facility] Last Admin: 10/12/19 09:23 Dose: 120 mg Documented by: Enoxaparin Sodium (Lovenox) 40 mg SUBCUT Q24H [facility] Last Admin: 11/15/19 10:25 Dose: Not Given Documented by: Sodium Chloride (Normal Saline) 1,000 mls @ 999 mls/hr IV ASDIRECTED [facility] Last Admin: 12/04/19 11:40 Dose: 999 mls/hr Documented by: Non-Formulary Medication (Naproxen Sodium [Aleve]) 220 mg PO BID PRN PRN Reason: Pain Ondansetron HCl (Zofran) Confirm Administered Dose 4 mg .ROUTE .STK-MED ONE Stop: 10/12/19 08:28 Last Admin: 10/12/19 09:21 Dose: Not Given Documented by: Ondansetron HCl (Zofran) 4 mg IVPUSH ONETIME ONE Stop: 10/12/19 09:31 Last Admin: 10/12/19 08:28 Dose: 4 mg Documented by: Sodium Chloride (Saline Flush) 10 ml FLUSH BEDTIME [facility] Last Admin: 10/19/19 20:45 Dose: Not Given Documented by: - Exam General: Alert, Oriented, Cooperative, No Acute Distress Lungs: Clear to Auscultation, Normal Respiratory Effort Cardiovascular: Regular Rate, Regular Rhythm GI/Abdominal Exam: Normal Bowel Sounds, Soft, Non-Tender, No Distention Sepsis Event Note - Evaluation Sepsis Screening Result: No Definite Risk - Focused Exam Vital Signs: Vital Signs Temp Pulse Resp BP Pulse Ox 12/11/19 07:39 98.0 F 80 16 128/84 92 L Date Exam was Performed: 12/11/19 Time Exam was Performed: 16:37 - Problem List & Annotations (1) Fracture tibia/fibula SNOMED Code(s): 748220912 Code(s): S82.209A - UNSP FRACTURE OF SHAFT OF UNSP TIBIA, INIT FOR CLOS FX; S82.409A - UNSP FRACTURE OF SHAFT OF UNSP FIBULA, INIT FOR CLOS FX Status: Acute Current Visit: Yes Qualifiers: Encounter type: subsequent encounter (2) Glaucoma SNOMED Code(s): 25616722 Code(s): H40.9 - UNSPECIFIED GLAUCOMA Status: Chronic Current Visit: Yes (3) HLD (hyperlipidemia) SNOMED Code(s): 07469743 Code(s): E78.5 - HYPERLIPIDEMIA, UNSPECIFIED Status: Chronic Current Visit: Yes Qualifiers: Hyperlipidemia type: unspecified Qualified Code(s): E78.5 - Hyperlipidemia, unspecified (4) MDD (major depressive disorder) SNOMED Code(s): 633803732 Code(s): F32.9 - MAJOR DEPRESSIVE DISORDER, SINGLE EPISODE, UNSPECIFIED Status: Chronic Current Visit: Yes Qualifiers: Major depression recurrence: recurrent (5) Osteoporosis SNOMED Code(s): 16614807 Code(s): M81.0 - AGE-RELATED OSTEOPOROSIS W/O CURRENT PATHOLOGICAL FRACTURE Status: Chronic Current Visit: Yes Qualifiers: Osteoporosis type: age-related (6) PSVT (paroxysmal supraventricular tachycardia) SNOMED Code(s): 24918069 Code(s): I47.1 - SUPRAVENTRICULAR TACHYCARDIA Status: Chronic Current Visit: Yes (7) Tobacco abuse SNOMED Code(s): 493365477 Code(s): Z72.0 - TOBACCO USE Status: Chronic Current Visit: Yes (8) Multiple sclerosis SNOMED Code(s): 60389066 Code(s): G35 - MULTIPLE SCLEROSIS Status: Chronic Current Visit: Yes - Problem List Review Problem List Initiated/Reviewed/Updated: Yes - Plan Plan:: Continue Citalopram to 30 mg daily Continue PT/OT. Waiting [place] approval for SNF placement.
[2019-12-11] MEDS: Latanoprost 0.005% Ophth Soln 2.5 ML Bottle EYEBOTH SCH (21:45)
[2019-12-11] MEDS: atorvaSTATin 20 MG Tab PO SCH (21:50)
[2019-12-12] MEDS: Acetaminophen 500 MG Tab PO SCH ×4 (10:17→20:22)
[2019-12-12] MEDS: Multivitamins with Iron/Calcium/Folic Acid/Minerals Tab PO SCH (10:17)
[2019-12-12] MEDS: Calcium Carbonate 500 MG Tablet PO SCH ×3 (10:18→20:21)
[2019-12-12] MEDS: DALFAMPRIDINE 10 MG PO SCH ×2 (10:18→20:20)
[2019-12-12] MEDS: Citalopram 10 MG Tab PO SCH (10:19)
[2019-12-12] MEDS: Aspirin 81 MG Tab.Chew PO SCH (10:19)
[2019-12-12] MEDS: Cholecalciferol (Vitamin D3) 25 MCG Tab PO SCH (10:20)
[2019-12-12] MEDS: TERIFLUNOMIDE 14 MG PO SCH (10:21)
[2019-12-12] MEDS: Brimonidine 0.2% Ophth Soln 5 ML Bottle EYEBOTH SCH ×2 (10:22→17:39)
[2019-12-12] MEDS: Dorzolamide 2% Ophth Soln 10 ML Bottle EYEBOTH SCH ×2 (10:23→17:39)
[2019-12-12] MEDS: atorvaSTATin 20 MG Tab PO SCH (20:21)
[2019-12-12] MEDS: Latanoprost 0.005% Ophth Soln 2.5 ML Bottle EYEBOTH SCH (20:28)
[2019-12-13] MEDS: Dorzolamide 2% Ophth Soln 10 ML Bottle EYEBOTH SCH ×2 (08:36→17:30)
[2019-12-13] MEDS: Calcium Carbonate 500 MG Tablet PO SCH ×3 (08:37→20:56)
[2019-12-13] MEDS: Multivitamins with Iron/Calcium/Folic Acid/Minerals Tab PO SCH (08:38)
[2019-12-13] MEDS: Cholecalciferol (Vitamin D3) 25 MCG Tab PO SCH (08:39)
[2019-12-13] MEDS: Citalopram 10 MG Tab PO SCH (08:40)
[2019-12-13] MEDS: Aspirin 81 MG Tab.Chew PO SCH (08:42)
[2019-12-13] MEDS: Acetaminophen 500 MG Tab PO SCH ×4 (08:42→20:56)
[2019-12-13] MEDS: DALFAMPRIDINE 10 MG PO SCH ×2 (08:42→20:56)
[2019-12-13] MEDS: TERIFLUNOMIDE 14 MG PO SCH (08:42)
[2019-12-13] MEDS: Brimonidine 0.2% Ophth Soln 5 ML Bottle EYEBOTH SCH ×2 (08:43→17:29)
[2019-12-13] MEDS: atorvaSTATin 20 MG Tab PO SCH (20:56)
[2019-12-13] MEDS: Latanoprost 0.005% Ophth Soln 2.5 ML Bottle EYEBOTH SCH (20:58)
[2019-12-14] MEDS: Brimonidine 0.2% Ophth Soln 5 ML Bottle EYEBOTH SCH (08:35)
[2019-12-14] MEDS: Cholecalciferol (Vitamin D3) 25 MCG Tab PO SCH (08:36)
[2019-12-14] MEDS: Citalopram 10 MG Tab PO SCH (08:36)
[2019-12-14] MEDS: Calcium Carbonate 500 MG Tablet PO SCH (08:36)
[2019-12-14] MEDS: Dorzolamide 2% Ophth Soln 10 ML Bottle EYEBOTH SCH (08:36)
[2019-12-14] MEDS: TERIFLUNOMIDE 14 MG PO SCH (08:36)
[2019-12-14] MEDS: Multivitamins with Iron/Calcium/Folic Acid/Minerals Tab PO SCH (08:37)
[2019-12-14] MEDS: Acetaminophen 500 MG Tab PO SCH (08:37)
[2019-12-14] MEDS: Aspirin 81 MG Tab.Chew PO SCH (08:37)
[2019-12-14] MEDS: DALFAMPRIDINE 10 MG PO SCH (08:38)
--- NOTE | 2019-12-14 15:23 | PCM.DCSUM1 ---
Discharge Summary - Hospital Course HPI Initial Comments: Kaykay is a 59-year-old female admitted yesterday to swing bed for rehabilitation. She had ORIF of the right tibia from a fall on 06 October at [facility]. She has MS,tobacco abuse uncontrolled, urinary incontinence stable, and a history of paroxysmal supra ventricular tachycardia. This morning she complains of palpitations and mild shortness of breath but denies any chest pain fever or chills. Diagnosis: Stroke: No - Discharge Data Discharge Date: 12/14/19 ([facility]) Discharge Disposition: DC/Tfer to [facility] Condition: Good - Referral to Home Health Date of Face to Face Encounter: 12/14/19 Reason for Homebound Status: wheelchair Primary Care Physician: Nevin Brown NP Skilled Need: PT/OT. Nursing - Discharge Diagnosis/Problem(s) (1) Fracture tibia/fibula SNOMED Code(s): 758635505 ICD Code: S82.209A - UNSP FRACTURE OF SHAFT OF UNSP TIBIA, INIT FOR CLOS FX; S82.409A - UNSP FRACTURE OF SHAFT OF UNSP FIBULA, INIT FOR CLOS FX Status: Acute Qualifiers: Encounter type: subsequent encounter (2) Glaucoma SNOMED Code(s): 18876261 ICD Code: H40.9 - UNSPECIFIED GLAUCOMA Status: Chronic (3) HLD (hyperlipidemia) SNOMED Code(s): 12413433 ICD Code: E78.5 - HYPERLIPIDEMIA, UNSPECIFIED Status: Chronic Qualifiers: Hyperlipidemia type: unspecified Qualified Code(s): E78.5 - Hyperlipidemia, unspecified (4) MDD (major depressive disorder) SNOMED Code(s): 153474846 ICD Code: F32.9 - MAJOR DEPRESSIVE DISORDER, SINGLE EPISODE, UNSPECIFIED Status: Chronic Qualifiers: Major depression recurrence: recurrent (5) Osteoporosis SNOMED Code(s): 65807817 ICD Code: M81.0 - AGE-RELATED OSTEOPOROSIS W/O CURRENT PATHOLOGICAL FRACTURE Status: Chronic Qualifiers: Osteoporosis type: age-related (6) PSVT (paroxysmal supraventricular tachycardia) SNOMED Code(s): 79755734 ICD Code: I47.1 - SUPRAVENTRICULAR TACHYCARDIA Status: Chronic (7) Tobacco abuse SNOMED Code(s): 428141567 ICD Code: Z72.0 - TOBACCO USE Status: Chronic (8) Multiple sclerosis SNOMED Code(s): 10083997 ICD Code: G35 - MULTIPLE SCLEROSIS Status: Chronic - Patient Summary/Data Consults: Consultations 10/11/19 11:08 OT Evaluation and Treatment [CONS] Routine Please Evaluate and Treat. OT Reason for Consult: ADL's This query below is only for informational purposes and is not editable. PT Evaluation and Treatment [CONS] Routine Please Evaluate and Treat. PT Reason for Consult: Strengthening This query below is only for informational purposes and is not editable. Hospital Course: Cherrie progressed well during her hospital stay with therapies, improving on transfers. She had a couple episodes of SVT, required Adenosine once and resolv ed on its own once. Initially she was progressing slowly due to anxiety, increased her Citalopram to 30 mg daily, added Hydroxyzine 25 mg tid as needed but she never had to use this, so discontinued. Her mood improved with this change, participated in therapies more and progressed on a more steady pace. She has been eating well, drinks soda, encourage water intake; she has maintained her weight, initially had lost from preadmission weight but now back up to 124 lbs. She just refilled her Multiple sclerosis(MS) medications and her new prescription will be brought to [facility]. She has not required any Tramadol since November 25 so discontinued. - Patient Instructions Diet: Regular Diet as Tolerated, Drink 8-10+ Glasses/Day Activity: As Tolerated Showering/Bathing: September Shower Notify Provider of: Fever, Increased Pain Other/Special Instructions: Discharge to [facility]. - Discharge Plan *PRESCRIPTION DRUG MONITORING PROGRAM REVIEWED*: No *COPY OF PRESCRIPTION DRUG MONITORING REPORT IN PATIENT RICH: No Prescriptions/Med Rec: Naproxen Sodium [Aleve] 220 mg PO BID PRN 30 Days #60 tab PRN Reason: Pain Citalopram [Citalopram HBr] 30 mg PO DAILY 30 Days #45 tab Dalfampridine [Dalfampridine ER] 10 mg PO BID 30 Days #60 tab Hypromellose [Genteal Mild] 1 drop EYEBOTH ASDIRECTED PRN 30 Days #1 bottle PRN Reason: Dry Eyes atorvaSTATin [Lipitor] 20 mg PO BEDTIME 30 Days #30 tab Bimatoprost [LUMIGAN 0.01% Ophth Soln] 1 drop EYEBOTH BEDTIME 30 Days #1 bottle Lutein 20 mg PO DAILY 30 Days #30 tab Calcium Carbonate [Oyster Shell Calcium] 500 mg PO TID 30 Days #90 tablet Brinzolamide/Brimonidine Tart [Simbrinza 1%-0.2% Eye Drops] 1 drop EYEBOTH BID 30 Days #1 bottle Aspirin [Kinney Aspirin] 81 mg PO DAILY 30 Days #30 tab.chew Multivit,Calc,Mins/Iron/Folic [Therapeutic-M Tablet] 1 tab PO DAILY 30 Days #30 tab Acetaminophen [Tylenol Extra Strength] 500 mg PO QID 30 Days #120 tablet Cholecalciferol (Vitamin D3) [Vitamin D3] 125 mcg PO DAILY 30 Days #150 tablet Cetirizine [ZyrTEC] 10 mg PO DAILY PRN 30 Days #30 tablet PRN Reason: Allergies Home Medications: Home Meds Teriflunomide [Aubagio] 14 mg PO DAILY 10/11/19 [History] Acetaminophen [Tylenol Extra Strength] 500 mg PO QID 30 Days #120 tablet 12/14/19 [Rx] Aspirin [Kinney Aspirin] 81 mg PO DAILY 30 Days #30 tab.chew 12/14/19 [Rx] Bimatoprost [LUMIGAN 0.01% Ophth Soln] 1 drop EYEBOTH BEDTIME 30 Days #1 bottle 12/14/19 [Rx] Brinzolamide/Brimonidine Tart [Simbrinza 1%-0.2% Eye Drops] 1 drop EYEBOTH BID 30 Days #1 bottle 12/14/19 [Rx] Calcium Carbonate [Oyster Shell Calcium] 500 mg PO TID 30 Days #90 tablet 12/14/19 [Rx] Cetirizine [ZyrTEC] 10 mg PO DAILY PRN 30 Days #30 tablet 12/14/19 [Rx] Cholecalciferol (Vitamin D3) [Vitamin D3] 125 mcg PO DAILY 30 Days #150 tablet 12/14/19 [Rx] Citalopram [Citalopram HBr] 30 mg PO DAILY 30 Days #45 tab 12/14/19 [Rx] Dalfampridine [Dalfampridine ER] 10 mg PO BID 30 Days #60 tab 12/14/19 [Rx] Hypromellose [Genteal Mild] 1 drop EYEBOTH ASDIRECTED PRN 30 Days #1 bottle 12/14/19 [Rx] Lutein 20 mg PO DAILY 30 Days #30 tab 12/14/19 [Rx] Multivit,Calc,Mins/Iron/Folic [Therapeutic-M Tablet] 1 tab PO DAILY 30 Days #30 tab 12/14/19 [Rx] Naproxen Sodium [Aleve] 220 mg PO BID PRN 30 Days #60 tab 12/14/19 [Rx] atorvaSTATin [Lipitor] 20 mg PO BEDTIME 30 Days #30 tab 12/14/19 [Rx] Patient Handouts: Supraventricular Tachycardia, Adult, Fall Prevention in Hospitals, Adult, Venous Thromboembolism Prevention Referrals: Nevin Brown [employer] [Primary Care Provider] - - Discharge Summary/Plan Comment DC Time >30 min.: Yes - General Info Date of Service: 12/14/19 Admission Dx/Problem (Free Text: Cherrie is doing well today, no shortness of breath, chest pain, fevers, chills. No nausea or vomiting. Incontinent of bowel/bladder which is not new. Leg brace on. Her mood is stable. No SVT events since 12/03, which resolved on its own. Functional Status: Reports: Pain Controlled, Tolerating Diet, Urinating. Denies: New Symptoms - Patient Data Vitals - Most Recent: Last Vital Signs Temp 98.1 F 12/14/19 08:00 Pulse 87 12/14/19 08:00 Resp 16 12/13/19 07:51 BP 120/74 12/14/19 08:00 Pulse Ox 92 L 12/14/19 08:00 Weight - Most Recent: 124 lb 14.4 oz Lab Results - Last 24 hrs: Laboratory Results - last 24 hr 12/14/19 Range/Units 05:00 SARS Virus RNA (PCR) Negative (NEGATIVE) Med Orders - Current: Current Medications Discontinued Medications Acetaminophen (Tylenol Extra Strength) 1,000 mg PO TID [facility] Last Admin: 10/13/19 09:26 Dose: Not Given Documented by: Acetaminophen (Tylenol Extra Strength) 500 mg PO Q4H [facility] Last Admin: 10/25/19 11:32 Dose: Not Given Documented by: Acetaminophen (Tylenol Extra Strength) 1,000 mg PO TID [facility] Last Admin: 10/26/19 08:38 Dose: 1,000 mg Documented by: Acetaminophen (Tylenol Extra Strength) 500 mg PO QID [facility] Last Admin: 12/14/19 08:37 Dose: 500 mg Documented by: Acetaminophen (Tylenol Extra Strength) 500 mg PO Q6H PRN PRN Reason: Pain (mild 1-3) Last Admin: 11/15/19 06:57 Dose: 500 mg Documented by: Hydrocodone Bitart/Acetaminophen ([place] 325-5 Mg) 1 tab PO Q6H PRN PRN Reason: Pain Last Admin: 10/12/19 05:12 Dose: 1 tab Documented by: Adenosine (Adenocard) 6 mg IVPUSH NOW ONE Stop: 10/12/19 08:50 Last Admin: 10/12/19 08:25 Dose: 6 mg Documented by: Adenosine (Adenocard) 6 mg IVPUSH NOW ONE Stop: 10/14/19 18:56 Last Admin: 10/14/19 19:40 Dose: 6 mg Documented by: Apixaban (Eliquis) 2.5 mg PO BID [facility] Stop: 11/09/19 09:01 Last Admin: 11/09/19 09:05 Dose: 2.5 mg Documented by: Artificial Tears (Genteal Mild To Moderate Ophth Soln) 0 ml EYEBOTH ASDIRECTED PRN PRN Reason: DRY EYES Aspirin (Aspirin) 81 mg PO DAILY [facility] Last Admin: 12/14/19 08:37 Dose: 81 mg Documented by: Atorvastatin Calcium (Lipitor) 20 mg PO BEDTIME [facility] Last Admin: 12/13/19 20:56 Dose: 20 mg Documented by: Brimonidine Tartrate (Alphagan 0.2% Ophth Soln) 0 ml EYEBOTH BID@0900,1800 [facility] Last Admin: 12/14/19 08:35 Dose: 1 drop Documented by: Calcium Carbonate/Glycine (Oyster Shell Calcium) 500 mg PO DAILY [facility] Last Admin: 11/22/19 08:34 Dose: 500 mg Documented by: Calcium Carbonate/Glycine (Oyster Shell Calcium) 1,500 mg PO DAILY [facility] Calcium Carbonate/Glycine (Oyster Shell Calcium) 500 mg PO TID [facility] Last Admin: 12/14/19 08:36 Dose: 500 mg Documented by: Cetirizine HCl (Zyrtec) 10 mg PO DAILY PRN PRN Reason: Allergies Cholecalciferol (Vitamin D3) 25 mcg PO DAILY [facility] Last Admin: 11/22/19 08:35 Dose: 25 mcg Documented by: Cholecalciferol (Vitamin D3) 125 mcg PO DAILY [facility] Last Admin: 12/14/19 08:36 Dose: 125 mcg Documented by: Citalopram Hydrobromide (Celexa) 10 mg PO DAILY [facility] Last Admin: 10/19/19 08:24 Dose: 10 mg Documented by: Citalopram Hydrobromide (Celexa) 20 mg PO DAILY [facility] Last Admin: 11/08/19 09:29 Dose: 20 mg Documented by: Citalopram Hydrobromide (Celexa) 30 mg PO DAILY [facility] Last Admin: 12/14/19 08:36 Dose: 30 mg Documented by: Dalfampridine (Dalfampridine Er) 10 mg PO BID [facility] Last Admin: 12/14/19 08:38 Dose: 10 mg Documented by: Diltiazem HCl (Cardizem Cd) 120 mg PO DAILY [facility] Last Admin: 10/12/19 09:23 Dose: 120 mg Documented by: Dorzolamide HCl (Trusopt 2% Ophth Soln) 0 ml EYEBOTH BID@0900,1800 [facility] Last Admin: 12/14/19 08:36 Dose: 1 drop Documented by: Enoxaparin Sodium (Lovenox) 40 mg SUBCUT Q24H [facility] Last Admin: 11/15/19 10:25 Dose: Not Given Documented by: Hydroxyzine HCl (Atarax) 25 mg PO TID PRN PRN Reason: ANXIETY Sodium Chloride (Normal Saline) 1,000 mls @ 999 mls/hr IV ASDIRECTED [facility] Last Admin: 12/04/19 11:40 Dose: 999 mls/hr Documented by: Latanoprost (Xalatan 0.005% Ophth Soln) 0 ml EYEBOTH BEDTIME [facility] Last Admin: 12/13/19 20:58 Dose: 1 drop Documented by: Lutein (Lutein) 20 mg PO DAILY [facility] Last Admin: 12/14/19 08:37 Dose: 20 mg Documented by: Multivitamins/Minerals (Thera M Plus) 1 tab PO DAILY [facility] Last Admin: 12/14/19 08:37 Dose: 1 tab Documented by: Non-Formulary Medication (Naproxen Sodium [Aleve]) 220 mg PO BID PRN PRN Reason: Pain (Teriflunomide [ Aubagio] 14 Mg) * Ptom 14 mg PO DAILY [facility] Last Admin: 12/14/19 08:36 Dose: 14 mg Documented by: Ondansetron HCl (Zofran) Confirm Administered Dose 4 mg .ROUTE .STK-MED ONE Stop: 10/12/19 08:28 Last Admin: 10/12/19 09:21 Dose: Not Given Documented by: Ondansetron HCl (Zofran) 4 mg IVPUSH ONETIME ONE Stop: 10/12/19 09:31 Last Admin: 10/12/19 08:28 Dose: 4 mg Documented by: Sodium Chloride (Saline Flush) 10 ml FLUSH ASDIRECTED PRN PRN Reason: Keep Vein Open Last Admin: 12/04/19 11:30 Dose: 10 ml Documented by: Sodium Chloride (Saline Flush) 10 ml FLUSH BEDTIME [facility] Last Admin: 10/19/19 20:45 Dose: Not Given Documented by: Tramadol HCl (Ultram) 50 mg PO Q4H PRN PRN Reason: LEG PAIN Last Admin: 11/26/19 10:22 Dose: 50 mg Documented by: - Exam Quality Assessment: Denies: Supplemental Oxygen General: Reports: Alert, Oriented, Cooperative, No Acute Distress Lungs: Reports: Clear to Auscultation, Normal Respiratory Effort Cardiovascular: Reports: Regular Rate, Regular Rhythm GI/Abdominal Exam: Normal Bowel Sounds, Soft, Non-Tender, No Distention (Female) Exam: Deferred Rectal (Female) Exam: Deferred Extremities: No Pedal Edema Psy/Mental Status: Reports: Normal Affect, Normal Mood
== END 2019-12-14 10:30 | DRG 560 ==
LOC: FB.MS 10-11 11:45
PROVIDERS: ADMIT Family Medicine; ATTEND Family Medicine
DX: S82.201D Unspecified fracture of shaft of right tibia, subsequent encounter for closed fracture with routine healing (principal); I47.1 Supraventricular tachycardia; F33.9 Major depressive disorder, recurrent, unspecified; G35 Multiple sclerosis; F41.0 Panic disorder [episodic paroxysmal anxiety]; R53.1 Weakness; Z11.59 Encounter for screening for other viral diseases; S82.401D Unspecified fracture of shaft of right fibula, subsequent encounter for closed fracture with routine healing; H40.9 Unspecified glaucoma; E78.5 Hyperlipidemia, unspecified; M81.0 Age-related osteoporosis without current pathological fracture; F17.200 Nicotine dependence, unspecified, uncomplicated; Z79.82 Long term (current) use of aspirin; Z79.899 Other long term (current) drug therapy; Z98.49 Cataract extraction status, unspecified eye; Z90.49 Acquired absence of other specified parts of digestive tract
CPT/HCPCS: 36415; 73630-LT; 80048; 80061; 84132; 84484; 85025; 93005; 94150; 97110-GO; 97110-GP; 97161-GP; 97165-GO; 97530-GO; 97530-GP; 97542-GO; A9270-GY; J0153; J2405; J7030; U0002